=== PATIENT | female | born 1940 | race Caucasian/White ===

== ENCOUNTER 2019-10-13 05:34 | Outpatient (RCR) | payer MEDICARE, SELFPAY | END 2019-10-14 00:01 | LOC: ONCMED 05:34 | PROVIDERS: Family Provider Internal Medicine; Visit Provider Internal Medicine Hematology & Oncology | DX: Z51.11 Encounter for antineoplastic chemotherapy (principal); C15.5 Malignant neoplasm of lower third of esophagus; C78.7 Secondary malignant neoplasm of liver and intrahepatic bile duct; K44.9 Diaphragmatic hernia without obstruction or gangrene; K40.90 Unilateral inguinal hernia, without obstruction or gangrene, not specified as recurrent; I10 Essential (primary) hypertension; Z90.49 Acquired absence of other specified parts of digestive tract; Z92.3 Personal history of irradiation | CPT/HCPCS: 36592 ×3; 70260; 70553; 78306; 80053 ×4; 85007; 85025 ×6; 96367 ×2; 96372 ×4; 96413 ×2; 96417 ×2; 99214 ×3; A9561; A9579; J1100 ×2; J1442 ×4; J2469 ×2; J3490 ×2; J7050 ×6; J9267 ×2; J9355 ×2 ==

== ENCOUNTER 2019-10-28 10:33 | Day surgery (SDC) | payer MEDICARE, SELFPAY ==
[2019-10-27 12:49] VITALS: BMI 19.9
[2019-10-28 10:47] VITALS: BP 105/62; PULSE 67; RESP 18; TEMP 36.5; O2SAT 99
[2019-10-28] MEDS: sodium chloride 0.9% 1,000 ML 30 ML IV (11:28)
--- NOTE | 2019-10-28 11:32 | ANES.PREANES ---
Pre-Anesthetic Assessment Pre-Anesthetic Assessment: Height/Weight: Height 1.52 m Weight 46.266 kg Temp Pulse Resp BP Pulse Ox 97.7 F 67 18 105/62 99 10/28/19 10:47 10/28/19 10:47 10/28/19 10:47 10/28/19 10:47 10/28/19 10:47 Preop Diagnosis: Esophageal cancer Proposed Procedure: Operation Date: 10/28/19 12:10 Proposed Procedures p Portacath Placement 74364, 85076, C15.9, R13.10(Not Applicable) - Abhinav Villafana MD s EGD Dilation W/ Balloon(Not Applicable) - Abhinav Villafana MD Familial anesthetic complications: None Was Beta Zia taken within 24 hours: Yes Last intake: Intake Last Liquid Date 10/27/19 Last Liquid Time 19:00 Last Solid Date 10/27/19 Last Solid Time 19:00 Social: Social History: No alcohol and No tobacco Exam: Pre-Anes Outpt Exam: alert, oriented x 3, clear to auscultation bilaterally and regular rate & rhythm Airway: Cervical ROM: WNL MP: 1 Dentition: False Pulmonary: Pulmonary: None reported CV/HEM: CV/HEM: HTN and None reported : : None reported Hepatic: Hepatic: None reported GI: GI: GERD Comments: esphogeal cancer, takes pepcid, dysphagia Metabolic: Metabolic: None reported Musc/skel: Musc/skel: OA/DJD Neuropsych: Neuropsych: None reported Anesthetic Plan: ASA status: IV Anesthesia: MAC Risk of > 500 ml blood loss (7ml/kg in children): No Meds/Allergies Current Medications: Current Medications Generic Name Dose Route Start Last Admin Trade Name Freq PRN Reason Stop Dose Admin Sodium Chloride 1,000 mls @ 30 ml s/hr 10/28/19 11:00 10/28/19 11:28 Sodium Chloride 0.9% IV 10/29/19 10:59 30 mls/hr .Q24H LINDA Administration PFSH Anesthesia PFSH: Social History Smoking and tobacco status: never smoked Second hand smoke exposure: No Alcohol intake: never Desire information about alcohol rehabilitation?: No Desire information about substance/drug rehabilitation?: No Adopted: No Caregiver/support person: Yes Lives independently: Yes Household members: family Housing: House Marital status: / Number of children: 3 Number of grandchildren: 6 Highest education level completed: High School Graduate service: No Current occupational status: retired Current occupational exposures/hazards: No Pets and animals: No Female Reproductive History: Para: 3 Spontaneous abortions: No Data Anesthesia Cardiac Studies: No Data to Display
[2019-10-28] MEDS: clindamycin 600 MG/50 ML PREMIX 100 MG IV (11:43)
--- NOTE | 2019-10-28 12:33 | PM.HPUD ---
H&P update H&P Update: DATE OF SURGERY/PROCEDURE: 10/28/19 DATE H&P PERFORMED: 10/16/19 H&P UPDATE INFORMATION: H&P completed within last 30 days and Changes to prior documentation as noted here (Patient overall feels frail and she is comfortable with the PICC line for now, proceed only with the EGD with possible balloon dilation) PREOP DIAGNOSIS: Difficulty in swallowing PRIMARY INDICATION FOR PROCEDURE: The same PLANNED PROCEDURE: Operation Date: 10/28/19 12:10 Proposed Procedures s EGD Dilation W/ Balloon(Not Applicable) - Abhinav Villafana MD Full H&P Medications/Allergies: Current Medications: Current Medications Generic Name Dose Route Start Last Admin Trade Name Freq PRN Reason Stop Dose Admin Sodium Chloride 1,000 mls @ 30 ml s/hr 10/28/19 11:00 10/28/19 11:28 Sodium Chloride 0.9% IV 10/29/19 10:59 30 mls/hr .Q24H LINDA Administration Perinent History: Medical/Surgical History: Medical History (Updated 10/18/19 @ 09:11 by Abhinav Villafana MD) Difficulty in swallowing (Acute) Family History: Family History (Updated 10/16/19 @ 16:03 by Katelyn Helms RN) Mother Cancer colon cancer Brother Cancer colon Sister Cancer breast cancer Social History: Social History Smoking and tobacco status: never smoked Second hand smoke exposure: No Alcohol intake: never Desire information about alcohol rehabilitation?: No Desire information about substance/drug rehabilitation?: No Adopted: No Caregiver/support person: Yes Lives independently: Yes Household members: family Housing: House Marital status: / Number of children: 3 Number of grandchildren: 6 Highest education level completed: High School Graduate service: No Current occupational status: retired Current occupational exposures/hazards: No Pets and animals: No
[2019-10-28 13:24] VITALS: BP 122/69; PULSE 70; RESP 16; TEMP 36.4; O2SAT 99
[2019-10-28 14:05] VITALS: BP 138/77; PULSE 61; RESP 18; TEMP 36.3; O2SAT 99
--- NOTE | 2019-10-28 14:52 | ANE.PACU ---
 Inpatient post-anesthesia follow up: Airway intact: Yes Vital signs: Temperature 97.4 F Pulse Rate [Monito r] 61 Respiratory Rate 18 Blood Pressure [Le ft Arm] 138/77 Pulse Oximetry 99 Oxygen Delivery Me thod Room Air Oxygen Flow Rate 3 Fraction of Inspir ed Oxygen Hydration adequate: Yes Nausea and vomiting: No Mental status: Baseline
== END 2019-10-28 14:41 | disposition home or self-care (01) ==
PROVIDERS: Family Provider Internal Medicine; PCP Internal Medicine; Visit Provider Surgery
PROC: (CPT 43235; 2019-10-28 12:10)
DX: R13.10 Dysphagia, unspecified (principal); Z80.0 Family history of malignant neoplasm of digestive organs; Z87.19 Personal history of other diseases of the digestive system; Z92.3 Personal history of irradiation; M19.90 Unspecified osteoarthritis, unspecified site
CPT/HCPCS: 43235; 12345; 96365; J2704; J3490; J7030

== ENCOUNTER 2019-11-04 08:18 | Outpatient (CLI) | payer MEDICARE, SELFPAY ==
--- NOTE | 2019-11-04 08:33 | FL_ITS ---
WS: [id number] MODIFIED BARIUM SWALLOW TECHNIQUE: Modified barium swallow with speech therapy using multiple consistencies. FLUOROSCOPY TIME: 2.7 minutes. CLINICAL INFORMATION: Pharyngoesoph. dysphagia COMPARISON: None. FINDINGS: Multiple consistencies utilized. Somewhat delayed oropharyngeal phase. No evidence of aspiration pene tration. Small amount of pooling in the vallecula. No difficulties with barium tablet. Mild esophageal dysmotility with delayed emptying. Gastroesophageal reflux to the upper esophagus. Sm all hiatal hernia. No evidence of high-grade stricture or obstructing mass. FL/FL barium swallow modifd 95236 IMPRESSION: 1. No evidence of kirstin aspiration. 2. Mild esophageal dysmotility with delayed emptying. 3. Gastroesophageal reflux the upper esophagus with a small hiatal hernia. 4. No evidence of high-grade stricture.
== END 2019-11-04 08:19 | disposition home or self-care (01) ==
PROVIDERS: Family Provider Internal Medicine; PCP Internal Medicine; Visit Provider Surgery
DX: K21.9 Gastro-esophageal reflux disease without esophagitis (principal); K44.9 Diaphragmatic hernia without obstruction or gangrene; R13.10 Dysphagia, unspecified
CPT/HCPCS: 74230; 92611

== ENCOUNTER 2019-11-14 05:44 | Outpatient (RCR) | payer MEDICARE, SELFPAY ==
[2019-10-20 12:14] LABS: Lymphocytes # 0.1 10^3/uL (0.8-4.8); Lymphocytes % 7.5 %; Mean Corpuscular HGB Conc 32.4 g/dL (30.0-36.0); Mean Corpuscular Hemoglobin 31.3 pg (28.0-34.0); Mean Corpuscular Volume 96.6 fL (81-99); Monocytes % 0.7 %; Neutrophils # 1.2 10^3/uL (1.8-7.7); Neutrophils % 91.1 %; Nucleated Red Blood Cells % 0 %; Platelet Count 156 10^3/cmm (130-400); Red Blood Count 3.52 10^6/uL (4.1-5.3); Red Cell Distribution Width 13.7 % (12.1-15.1); White Blood Count 1.3 10^3/uL (4.0-10.0)
[2019-10-20 12:37] LABS: Alanine Aminotransferase 20 U/L (0-33); Albumin Level 3.9 g/dL (3.5-5.2); Alkaline Phosphatase 176 IU/L (35-105); Anion Gap 14.7 (5-19); Aspartate Amino Transferase 32 U/L (0-32); Blood Urea Nitrogen 16 mg/dL (8-23); Calcium 9.9 mg/Dl (8.8-10.2); Carbon Dioxide 25 mmol/L (22-29); Chloride 101 mmol/L (98-107); Glucose 154 mg/dL (74-106); Potassium 4.7 mmol/L (3.5-5.1); Sodium 136 mmol/L (136-145); Total Bilirubin 0.3 mg/dL (0.15-1.2); Total Protein 6.9 g/dL (6.6-8.7)
--- NOTE | 2019-10-20 15:49 | ONC FU_ITS ---
[facility] Patient Note Patient: Arelis Pro Unit #: [id number]: [id number] Dictated By: Suleiman DaviesDate of Visit: Oct 20, 2019 Onc MED Follow-Up/Prog Note Chief Complaint: Metastatic esophageal cancer with liver metastases History of Present Illness: Ms Pro is a 79-year-old female who initially presented with dysphagia in the summer of 2017. It did get progressively worse, to the point where she only tolerated a liquid diet. She did undergo barium swallow on 09/20/2018 which showed a poor motility throughout and the distal esophagus was dilated. There was a stricture at the gastroesophageal junction. She then underwent EGD on 10/01/2018 which revealed a distal esophageal mass at the 30-35 cm joao. It was biopsied and pathology confirmed infiltrating adenocarcinoma. On 10/05/2018 she underwent PET/CT imaging. He reported a 2.8 x 3 cm GE junction mass with an SUV of 19.7. There were 3 separate hepatic lesions with the largest one in the left hepatic lobe measuring 2.5 cm with SUV of 31.1. Smaller right hepatic lobe lesions have SUVs up to 10.5. There was no evidence of mediastinal or abdominal lymphadenopathy or other metastasis. She complained of dysphagia and only tolerated a liquid diet. She had fatigue and night sweats. She had significant weight loss of 42 pounds over 6 months. patient has history of laparoscopic Trell fundoplication done about 4 years ago with hiatal hernia repair in [place]. Ms Pro was offered treatment with systemic chemotherapy with modified FOLFOX. She was planned to have repeat EGD after 3 cycles to assess response and plan for PET/CT after 6 cycles.. An attempt was made for venous access device placement on 10/22/2018. Informed that she did have a right hemothorax. She does have a left arm PICC line for venous access at this time. No further attempt has been made for venous access device, such as the Port-A-Cath. She began her first cycle of chemotherapy with modified FOLFOX and Herceptin (she was HER-2/jordan positive) on 10/04/2018. After her 2nd dose of Herceptin/FOLFOX, she had dramatic improvement in her swallowing. Follow-up CT PET scan done on 12/21/2018 showed excellent response, now there was minimal activity at the distal esophagus, consistent with positive response to therapy, this area had shown an SUV of 3.4 compared to 19.7 on prior study. Multifocal hepatic metastasis now isometabolic to the surrounding baseline liver activity, representing a positive response to therapy. No new lesions have developed. And mediastinum, new activity in the right hilar lymph node has SUV of 4.6, other nodes in the subcarinal and right paratracheal territories are similarly FDG positive, these are likely reactive . She underwent follow-up EGD on 01/29/2019 which showed an abnormality in the lower third esophagus. The abnormal area looked like mucosa- appreciated at the distal third of esophagus, random and multiple biopies were obtained. The final pathology report showed benign fragment of superficial gastric type mucosa with focal specialized metaplasia, with a rare cellular atypia no evidence of malignancy. Patient has a right groin hernia for which she underwent CT scan of abdomen pelvis on 01/30/2019 which showed metallic foreign body within the distal esophagus, but EGD done on 01/29/2019 showed nothing, Metallic esophageal stent in noted. Small sliding-type hiatal hernia; 2 ill-defined foci of decreased attenuation right lobe liver at sites of prior hepatic metastases Status post cholecystectomy, hysterectomy and appendicectomy CT PET scan done on 03/01/2019 showed the distal esophagus with an SUV of 4.8, compared to 3.4 previously. Hepatic activity is unremarkable no evidence of active metastatic disease reactive mediastinal lymph node previously described are now FDG negative. EGD was done on 01/29/2019 and esophageal biopsy shows benign changes. She tolerated palliative chemotherapy with FOLFOX/Herceptin well except progressive leukopenia/neutropenia. Follow-up PET scan done after 11 dose of FOLFOX plus Herceptin on 06/07/2019 showed new intense activity at the distal esophagus otherwise no other abnormality Because of progressive dysphagia and local disease progression seen on CT PET scan, her chemotherapy was put on hold. She was referred to radiation oncology and underwent palliative radiation therapy. alone to distal esophagus starting from 07/02/2019 through 08/06/2019. She tolerated the radiation well with good palliation and improvement of dysphagia. Mrs Pro tolerated palliative radiation to distal esophagus well with significant improvement in her dysphagia. was recommended changing her treatment to maintenance therapy with weekly Herceptin and Taxol 3 weeks on 1 week off. The plan is to do follow-up CT PET scan after 3 cycles. She began her first dose on 09/08/19. Patient also developed progressive neutropenia/leukopenia and was treated with Neupogen and was given prophylactic antibiotics and her chemotherapy was put on hold since her last chemotherapy on 09/15/2019 She did have an MRI of the brain last week and was foung to have no signs of brain metastasis, but did have an area of suspected underlying dural thickening and enhancement. 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 but Negative calvarial radiographs, no calvarial lesions to correlate with the abnormal bone scan activity Bilateral anterior rib activity probably posttraumatic, metastatic disease less likely. Resolved previous compression fracture T11 vertebral body activity. Dr Fischer discussed her disease status with her and her family and it was decided to have her resume paclitaxel/Herceptin weekly. She resumed her first cycle on 10/13/2019. She did not have growth factor support. Ms. Pro is here today for follow-up. She is due for day 8 paclitaxel Herceptin. She is had trouble with her blood counts being low in the past and has required growth factor support. However she did not get growth factor with her previous treatment last week. She reports today that she is having new persistent and severe upper mid quad pain. She states it is came on all of a sudden after her last treatment she states is up in the diaphragm area right where they put the radiation de la torre . She denies any persistent diarrhea. She did have a couple days of diarrhea after the Herceptin but that has resolved. She denies any blood in the stool. She denies any nausea or vomiting. She denies any heartburn or acid reflux. She states it hurts to eat and that exacerbates the pain. So she is not eating. Heat or warm liquids seems to help but she is unable take any pain medication because she is allergic to most pain meds. She has not tried hydromorphone or morphine in the past that she is aware of. She typically develops a significant rash with the pain meds that she has allergies listed to now. She states her breathing has been good except when she is having the pain and she is little bit more short of breath than normal. She denies fever or chills. She denies any urinary changes. She has had slight neuropathy but that is much better. Her ECOG is 2. Past Medical History: Hypertension Past Surgical History: Cholecystectomy Esophagotomy Hernia repair Hysterectomy Tonsillectomy EGD in [address] Villafana in 2019 Right hemithorax after attempted Port a Cath placement in 2019 Allergies: Advil, Amoxicillin, Codeine Sulfate, darvacet, Fosamax, Gabapentin, Hydrocodone-Acetaminophen, Penicillin V Potassium, tegament, TraMADol HCl, Tylenol with Codeine #3, and Vicodin. Medications: ALPRAZolam 1 Tablet (of 0.5 mg) Oral t.i.d. PRN ClearLax Powder Oral daily PRN Famotidine 1 Tablet (of 20 mg) Oral b.i.d. First-Mouthwash BLM 1 tsp Suspension Mouth/throat four times a day PRN Fluconazole 1 Tablet (of 100 mg) Oral daily PRN Metoprolol Tartrate 0.5 Tablet (of 25 mg) Oral daily Prochlorperazine Maleate 1 Tablet (of 10 mg) Oral q 4 hours PRN Family History: Ms. Pro's mother at age 73: colon cancer. Ms. Pro's father at age 69: type II diabetes. Ms. Pro has 1 brother who is : colon cancer. She has 2 sisters: 1 alive, 1 . Ms. Pro's first sister's breast cancer. Another sister's breast cancer. Social History: Ms. Pro is and she is retired. Ms. Pro has never smoked. She has no history of drinking. Review Of Symptoms: Constitutional Denies fevers, chills, night sweats, excessive fatigue or weight loss. Marginal appetite. Allergic/Immunologic No reactions. Eyes Denies significant visual changes-she has had increased blurry vision off and on. No diplopia. No amaurosis. ENMT Denies changes in hearing, sore throat, mouth sores, difficulty or changes in swallowing ability, and/or sinus drainage. Endocrine No diabetes, thyroid disease or hormone replacement. Denies hot flashes or night sweats. Hematologic/Lymphatic Denies easy bruising or bleeding. The patient denies any tender or palpable lymph nodes. Respiratory Denies dyspnea on exertion, chest pain, cough or hemoptysis. Denies orthopnea. Cardiovascular Denies anginal chest pain, palpitations or orthopnea. Gastrointestinal Denies nausea, vomiting, diarrhea, GI bleeding, or constipation. Denies change in bowel habits and/or stool color, no heartburn or early satiety. Having persistent severe pain in mid upper quadrant of abdomen. She states it is right where the radiation de la torre were. It just started suddenly but has not let up much . It hurts to eat, so she isn't doing that. Pepcid did help some. She has significant rash to many medications-especially pain medication. She has not tried hydromorphone or morphine. Genitourinary (F) No hematuria, hesitancy, incontinence, vaginal bleeding, discharge or other problems with urination. Musculoskeletal Denies joint pain, swelling or redness. No decreased range of motion. Integumentary Denies chronic rashes, inflammation, ulcerations or skin changes. Neurologic Denies headache, blurred vision, and no areas of focal weakness or numbness. Normal gait. No sensory problems. Psychiatric Denies insomnia, depression, silver or mood swings. Vital Signs: Performed on Oct 20, 2019 13:36 Height - 61.00 in Weight - 106.2 lbs (LOW) BSA - 1.44 sq.m BMI - 20.07 Temperature - 98.0 F (LOW) Pulse - 83 /min Respiration - 18 /min BP - 120/71 mm(hg) O2 Sat - 97 % Pain - 8,2 - Ambulatory/capable of all self-care, unable to perform any work activities. Up and about more than 50% of waking hours. (ECOG) Physical Examination: Constitutional Alert, oriented, no acute distress. Skin pink, warm and dry. Head Normocephalic; atraumatic. There is a 2-3 cm diameter hard, raised, non draining lesion on the right side near her pentecostal area. Eyes Conjunctivae and sclerae are clear and without icterus. Pupils are reactive and equal. Neck No jugular venous distension. Hematologic/Lymphatic No petechiae or purpura. Abdomen Non-tender, non-distended, no masses, ascites. Good bowel sounds noted in all quads. No guarding or rebound tenderness. No pulsatile masses. Moderate tenderness noted in mid upper quad. Back/Spine Non-tender to palpation. Extremities No visible deformities, no cyanosis, clubbing or edema. Musculoskeletal No tenderness or swelling, normal range of motion without obvious weakness. Integumentary No rashes or lesions. Neurologic No sensory or motor deficits, normal cerebellar function, normal gait. Psychiatric Alert and oriented times three. Coherent speech. Verbalizes understanding of our discussions today. Laboratory:Test performed on Oct 20, 2019 12:59 Sodium 136 mmol/L Potassium 4.7 mmol/L Chloride 101 mmol/L CO2 25 mmol/L Anion Gap 14.7 BUN 16 mg/dL Creatinine 0.5 mg/dL Cr Clearance (Est) 72.39 mL/min Glucose 154 mg/dL Calcium 9.9 mg/dL Protein, Total 6.9 g/dL Albumin 3.9 g/dL Globulin 3.0 g/dL Bilirubin, Total 0.3 mg/dL ALT (SGPT) 20 Units/L AST (SGOT) 32 Units/L Alkaline Phosphatase 176 IU/L WBC 1.3 10^3/uL RBC 3.52 10^6/uL HGB 11.0 g/dL HCT 34.0 % MCV 96.6 fl MCH 31.3 pg MCHC 32.4 g/dL RDW 13.7 % Platelet Count 156 10^3/uL MPV 10.0 fl Neutrophils 1.2 10^3/uL Lymphocytes 0.1 10^3/uL Monocytes 0.0 10^3/uL Eosinophils 0.0 10^3/uL Basophils 0.0 10^3/uL Neutrophil % 91.1 % Lymphocyte % 7.5 % Monocyte % 0.7 % Eosinophil % 0.0 % Basophils % 0.0 % Impression: Infiltrating adenocarcinoma of distal esophagus per EGD done on 10/01/2018. CT PET scan done on 10/05/2018 showed abnormal activity at GE junction mass measuring roughly 2.8 x 3 cm with SUV of 19.7. 3 separate hepatic lesions are identified, indicating multifocal hepatic metastatic disease. The index lesion in the left hepatic lobe measures 2.5 cm with SUV of 31.1. Smaller right hepatic lobe lesions have SUV of 10.5 Approximately 30 pounds Weight loss due to Dysphagia due to above Hypertension Dr Fischer discussed with Mrs Pro her disease status clinically and radiologically. She has stage IV disease with liver metastases. She was symptomatic due to distal esophageal primary. Case was discussed with Dr. Hector , as per his evaluation patient has partial obstruction and liquid diet maybe tolerable. Considering her age and stage of disease, recommended systemic chemotherapy with modified dose FOLFOX and hercetin ,as she is [id number] positive and repeat EGD after 3 cycles to assess the response. Plan for CT PET scan after 6 doses. If with chemotherapy there is no improvement in her dysphagia, we may consider palliative radiation therapy or J-tube. Ms. Pro began her first cycle of modified FOLFOX along with Herceptin (she was HER-2/jordan positive) 0n 11/04/2018. She has tolerated treatment well and has had obvious clinical response. Follow-up CT PET scan done on 12/21/2018 showed excellent response with minimal activity of the distal esophagus consistent with a positive response to therapy. The area had a reported SUV of 3.4 compared to 19.7 on prior study. Multifocal hepatic metastases are now isometabolic to surrounding baseline liver activity, representing a positive response to therapy. No new lesion seen except few reactive lymph nodes in the right hilar, paratracheal and subcarinal area. Follow-up EGD done on 01/29/2019 showed abnormal looking mucosa at the distal third of esophagus, multiple biopsies were obtained. The final pathology report showed Goldstein's esophagitis, no evidence of malignancy. Follow-up PET/CT from March 01, 2019 reported distal esophagus with an SUV of 4.8 up from 3.4 and a significant change. Given the benign biopsy results from January 2019 EGD this is likely inflammatory. Hepatic activity is unremarkable with no evidence of active metastatic disease. The reactive mediastinal nodes previously described are now FDG negative . Follow-up CT PET scan done on 06/07/2019 after 12 dose of FOLFOX/Herceptin showed disease progression at distal esophagus with increased activity-SUV 10.5. At that time chemotherapy was discontinued on 06/03/2019 and due to progressive dysphagia. She was referred to radiation oncology for palliative radiation therapy to distal esophagus which she completed on 08/06/2019. Mrs Pro tolerated palliative radiation to distal esophagus well with significant improvement in her dysphagia. was recommended changing her treatment to maintenance therapy with weekly Herceptin and Taxol 3 weeks on 1 week off. The plan is to do follow-up CT PET scan after 3 cycles. Echocardiogram done on 09/29/2019 showed ejection fraction 65% and bone scan showed abnormal activity in the calvarium but plain x-ray showed no abnormality. MRI scan of the head which showed calvarium bone lesion confirmed with bone scan but plain x-ray did not show any abnormality in the skull bones, these changes could be due to chemotherapy-induced bone marrow changes. Per DR Fischer, we'll monitor. Ms. Pro resumed paclitaxel Herceptin on 10/13/2019. She is once again having chemo induced neutropenia today with an ANC of 1200. Plan: 1. Delay week 2/day 8 of planned chemotherapy with paclitaxel/Hereptin due to neutropenia. ANC is 1200 today. 2. Steroid complaince confirmed. 3. I do not see that she received Neupogen after treatment last week. 4. I have requested a follow-up PET CT as she states it was due for October after the radiation plus she is having new sudden onset mid upper quadrant pain. She states that pain is worse with eating, but warm liquids or a heating pad do seem to ease the pain some although it does not relieve it completely. Hopefully we will be able to get the PET scan on the Sunday. 5. Her daughter is requesting that we move her appointments to Sunday or for ease of their schedules at home. This was no problem. We will plan to see her next Sunday with CBC CMP- she will come here and have her labs drawn. We did discuss possibly having them drawn at home prior to use her appointment but our train attendant is unable to draw through the PICC line and they were not real comfortable with home health drawing through the PICC line. 6. In the interim I did ask her to increase her Pepcid to 40 mg twice daily as she states the Pepcid has helped with the pain some. 7. We will also try her on MSIR 15 mg 1 tablet every 4 hours as needed for pain???written prescription per Dr. Montoya. Ms. Pro and her daughter were instructed to call us prior to her appointment next Sunday if this is not easing her pain. At that point we may be able to try hydromorphone. 8. Today's labs were reviewed in detail and discussed with Mrs. Pro and her daughter and a copy was given to them. WBC 1.3, hemoglobin 11, platelets 156,000 ANC is 1200. 9. I did go and send in a prescription for Medrol Dosepak in the event that she does have allergic reaction/rash to the morphine. 10. Mrs. Pro was instructed to proceed to the emergency room if her pain worsens. I did consider doing a abdominal/pelvic CT today however she is due for the PET CT as well and I was not sure insurance would cover both. Ms. Pro states she was comfortable waiting till Sunday to have the PET done. She is agreeable that if it worsens she will present to the ER. Signed By: Suleiman Davies-, AOCNP Tamar Fischer MD <<Signature on File>>
[2019-10-29 14:47] LABS: Basophils % 1.2 %; Eosinophils # 0.1 10^3/uL (0.0-0.8); Eosinophils % 3.6 %; Hematocrit 33.9 % (37.0-47.0); Hemoglobin 10.8 g/dL (11.5-15.3); Lymphocytes # 0.3 10^3/uL (0.8-4.8); Lymphocytes % 16.1 %; Mean Corpuscular HGB Conc 31.9 g/dL (30.0-36.0); Mean Corpuscular Hemoglobin 30.9 pg (28.0-34.0); Mean Corpuscular Volume 97.1 fL (81-99); Mean Platelet Volume 10.2 fL (7.4-10.4); Monocytes # 0.4 10^3/uL (0.2-0.9); Monocytes % 21.4 %; Neutrophils % 57.7 %; Nucleated Red Blood Cells % 0 %; Platelet Count 136 10^3/cmm (130-400); Red Blood Count 3.49 10^6/uL (4.1-5.3); Red Cell Distribution Width 13.5 % (12.1-15.1); White Blood Count 1.7 10^3/uL (4.0-10.0)
[2019-10-29 15:15] LABS: Alanine Aminotransferase 14 U/L (0-33); Albumin Level 3.6 g/dL (3.5-5.2); Alkaline Phosphatase 168 IU/L (35-105); Anion Gap 12.1 (5-19); Aspartate Amino Transferase 25 U/L (0-32); Blood Urea Nitrogen 15 mg/dL (8-23); Calcium 9.6 mg/Dl (8.8-10.2); Carbon Dioxide 28 mmol/L (22-29); Chloride 105 mmol/L (98-107); Globulin 2.8 g/dL (1.3-4.6); Glucose 102 mg/dL (74-106); Potassium 4.1 mmol/L (3.5-5.1); Sodium 141 mmol/L (136-145); Total Bilirubin 0.5 mg/dL (0.15-1.2); Total Protein 6.4 g/dL (6.6-8.7)
[2019-11-05 16:02] LABS: Basophils % 0.5 %; Eosinophils # 0.2 10^3/uL (0.0-0.8); Eosinophils % 3.4 %; Hematocrit 35.8 % (37.0-47.0); Hemoglobin 11.4 g/dL (11.5-15.3); Lymphocytes # 0.5 10^3/uL (0.8-4.8); Lymphocytes % 10.8 %; Mean Corpuscular HGB Conc 31.8 g/dL (30.0-36.0); Mean Corpuscular Hemoglobin 29.8 pg (28.0-34.0); Mean Corpuscular Volume 93.7 fL (81-99); Mean Platelet Volume 10.2 fL (7.4-10.4); Monocytes # 0.4 10^3/uL (0.2-0.9); Monocytes % 9.2 %; Neutrophils # 3.3 10^3/uL (1.8-7.7); Neutrophils % 75.9 %; Nucleated Red Blood Cells % 0 %; Platelet Count 164 10^3/cmm (130-400); Red Blood Count 3.82 10^6/uL (4.1-5.3); Red Cell Distribution Width 13.6 % (12.1-15.1); White Blood Count 4.4 10^3/uL (4.0-10.0)
[2019-11-05 18:57] LABS: Alanine Aminotransferase 21 U/L (0-33); Albumin Level 3.4 g/dL (3.5-5.2); Alkaline Phosphatase 174 IU/L (35-105); Anion Gap 16.1 (5-19); Aspartate Amino Transferase 35 U/L (0-32); Blood Urea Nitrogen 13 mg/dL (8-23); Calcium 9.8 mg/Dl (8.8-10.2); Carbon Dioxide 25 mmol/L (22-29); Chloride 104 mmol/L (98-107); Globulin 2.7 g/dL (1.3-4.6); Glucose 128 mg/dL (74-106); Potassium 4.1 mmol/L (3.5-5.1); Sodium 141 mmol/L (136-145); Total Bilirubin 0.4 mg/dL (0.15-1.2); Total Protein 6.1 g/dL (6.6-8.7)
[2019-11-12 17:42] LABS: Alanine Aminotransferase 26 U/L (0-33); Albumin Level 3.6 g/dL (3.5-5.2); Alkaline Phosphatase 200 IU/L (35-105); Anion Gap 17.4 (5-19); Aspartate Amino Transferase 41 U/L (0-32); Blood Urea Nitrogen 11 mg/dL (8-23); Calcium 9.9 mg/dL (8.5-10.5); Carbon Dioxide 25 mmol/L (22-29); Chloride 104 mmol/L (98-107); Globulin 3.2 g/dL (1.3-4.6); Glucose 118 mg/dL (74-106); Potassium 4.4 mmol/L (3.5-5.1); Sodium 142 mmol/L (136-145); Total Bilirubin 0.5 mg/dL (0.15-1.2); Total Protein 6.8 g/dL (6.6-8.7)
[2019-11-12 19:33] LABS: Basophils % 0.5 %; Eosinophils # 0.1 10^3/uL (0.0-0.8); Eosinophils % 2.3 %; Hematocrit 36.4 % (37.0-47.0); Hemoglobin 11.6 g/dL (11.5-15.3); Lymphocytes # 0.5 10^3/uL (0.8-4.8); Lymphocytes % 10.9 %; Mean Corpuscular HGB Conc 31.9 g/dL (30.0-36.0); Mean Corpuscular Hemoglobin 31.1 pg (28.0-34.0); Mean Corpuscular Volume 97.6 fL (81-99); Mean Platelet Volume 10.4 fL (7.4-10.4); Monocytes # 0.4 10^3/uL (0.2-0.9); Monocytes % 9.5 %; Neutrophils # 3.4 10^3/uL (1.8-7.7); Neutrophils % 76.6 %; Nucleated Red Blood Cells % 0 %; Platelet Count 153 10^3/cmm (130-400); Red Blood Count 3.73 10^6/uL (4.1-5.3); Red Cell Distribution Width 13.4 % (12.1-15.1); White Blood Count 4.4 10^3/uL (4.0-10.0)
[2019-11-14] MEDS: acetaminophen 325 mg Tablet 650 MG PO (09:36)
[2019-11-14] MEDS: sodium chloride 0.9% 250 ML IV (09:36)
--- NOTE | 2019-11-14 12:46 | ONC FU_ITS ---
Dr. Fischer follow up note Patient: Arelis Pro Unit #: [id number]: [id number] Dicatated By: Tamar Fischer M.D.Date of Visit:Nov 14, 2019 Onc Med Follow-up/Prog Note History of Present Illness: Ms Pro is a 79-year-old female who initially presented with dysphagia in the summer of 2017. It did get progressively worse, to the point where she only tolerated a liquid diet. She did undergo barium swallow on 09/20/2018 which showed a poor motility throughout and the distal esophagus was dilated. There was a stricture at the gastroesophageal junction. She then underwent EGD on 10/01/2018 which revealed a distal esophageal mass at the 30-35 cm joao. It was biopsied and pathology confirmed infiltrating adenocarcinoma. On 10/05/2018 she underwent PET/CT imaging. He reported a 2.8 x 3 cm GE junction mass with an SUV of 19.7. There were 3 separate hepatic lesions with the largest one in the left hepatic lobe measuring 2.5 cm with SUV of 31.1. Smaller right hepatic lobe lesions have SUVs up to 10.5. There was no evidence of mediastinal or abdominal lymphadenopathy or other metastasis. She complained of dysphagia and only tolerated a liquid diet. She had fatigue and night sweats. She had significant weight loss of 42 pounds over 6 months. patient has history of laparoscopic Trell fundoplication done about 4 years ago with hiatal hernia repair in [place]. Ms Pro was offered treatment with systemic chemotherapy with modified FOLFOX. She was planned to have repeat EGD after 3 cycles to assess response and plan for PET/CT after 6 cycles.. An attempt was made for venous access device placement on 10/22/2018. Informed that she did have a right hemothorax. She does have a left arm PICC line for venous access at this time. No further attempt has been made for venous access device, such as the Port-A-Cath. She began her first cycle of chemotherapy with modified FOLFOX and Herceptin (she was HER-2/jordan positive) on 10/04/2018. After her 2nd dose of Herceptin/FOLFOX, she had dramatic improvement in her swallowing. Follow-up CT PET scan done on 12/21/2018 showed excellent response, now there was minimal activity at the distal esophagus, consistent with positive response to therapy, this area had shown an SUV of 3.4 compared to 19.7 on prior study. Multifocal hepatic metastasis now isometabolic to the surrounding baseline liver activity, representing a positive response to therapy. No new lesions have developed. And mediastinum, new activity in the right hilar lymph node has SUV of 4.6, other nodes in the subcarinal and right paratracheal territories are similarly FDG positive, these are likely reactive . She underwent follow-up EGD on 01/29/2019 which showed an abnormality in the lower third esophagus. The abnormal area looked like mucosa- appreciated at the distal third of esophagus, random and multiple biopies were obtained. The final pathology report showed benign fragment of superficial gastric type mucosa with focal specialized metaplasia, with a rare cellular atypia no evidence of malignancy. Patient has a right groin hernia for which she underwent CT scan of abdomen pelvis on 01/30/2019 which showed metallic foreign body within the distal esophagus, but EGD done on 01/29/2019 showed nothing, Metallic esophageal stent in noted. Small sliding-type hiatal hernia; 2 ill-defined foci of decreased attenuation right lobe liver at sites of prior hepatic metastases Status post cholecystectomy, hysterectomy and appendicectomy CT PET scan done on 03/01/2019 showed the distal esophagus with an SUV of 4.8, compared to 3.4 previously. Hepatic activity is unremarkable no evidence of active metastatic disease reactive mediastinal lymph node previously described are now FDG negative. EGD was done on 01/29/2019 and esophageal biopsy shows benign changes. She tolerated palliative chemotherapy with FOLFOX/Herceptin well except progressive leukopenia/neutropenia. Follow-up PET scan done after 11 dose of FOLFOX plus Herceptin on 06/07/2019 showed new intense activity at the distal esophagus otherwise no other abnormality Because of progressive dysphagia and local disease progression seen on CT PET scan, her chemotherapy was put on hold. She was referred to radiation oncology and underwent palliative radiation therapy. alone to distal esophagus starting from 07/02/2019 through 08/06/2019. She tolerated the radiation well with good palliation and improvement of dysphagia. Mrs Pro tolerated palliative radiation to distal esophagus well with significant improvement in her dysphagia. was recommended changing her treatment to maintenance therapy with weekly Herceptin and Taxol 3 weeks on 1 week off. The plan is to do follow-up CT PET scan after 3 cycles. She began her first dose on 09/08/19. Patient also developed progressive neutropenia/leukopenia and was treated with Neupogen and was given prophylactic antibiotics and her chemotherapy was put on hold since her last chemotherapy on 09/15/2019 She did have an MRI of the brain last week and was foung to have no signs of brain metastasis, but did have an area of suspected underlying dural thickening and enhancement. 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 but Negative calvarial radiographs, no calvarial lesions to correlate with the abnormal bone scan activity Bilateral anterior rib activity probably posttraumatic, metastatic disease less likely. Resolved previous compression fracture T11 vertebral body activity. discussed her disease status with her and her family and it was decided to have her resume paclitaxel/Herceptin weekly. She resumed her first cycle on 10/13/2019. She did not have growth factor support.And again developed progressive neutropenia/leukopenia due to that chemotherapy was put on hold. Because of progressive leukopenia patient received only to weekly doses of Herceptin/Taxol prior to follow-up CT PET scan on 10/25/2019 which showed distal esophageal mass is progressed now measuring 2.7 cm in diameter SUV 15.2 compared to 10.7 previously there has been interval development of multifocal hepatic metastatic disease and index lesion in the central left hepatic lobe measuring 1.6 x 2.4 cm with SUV of 27.8. His segment IVb index lesion measures 2.6 x 1.9 cm with SUV of 17.7. Multiple other lesion throughout the liver demonstrates similar uptake. Underwent EGD on 10/28/2019 which showed presence of scarring but without obvious stenosis or stricture. No other abnormality seen. Came for follow-up, complaining of mild dysphagia but when she sits straight food moves easily to her stomach. Other than that no nausea vomiting no hemoptysis or hematemesis, no diarrhea constipation. Patient recently underwent EGD and as per report there is a no obvious stenosis or stricture or recurrence of disease, her dysphagia could be due to dysmotility due to scarring of distal esophageal segment. Otherwise no abdominal pain, no jaundice, no nausea or vomiting, no diarrhea constipation no fever or chills. Medications: ALPRAZolam 1 Tablet (of 0.5 mg) Oral t.i.d. PRN, ClearLax Powder Oral daily PRN, Famotidine 1 Tablet (of 40 mg) Oral b.i.d., First-Mouthwash BLM 1 tsp Suspension Mouth/throat four times a day PRN, Fluconazole 1 Tablet (of 100 mg) Oral daily PRN, Metoprolol Tartrate 0.5 Tablet (of 25 mg) Oral daily, Prochlorperazine Maleate 1 Tablet (of 10 mg) Oral q 4 hours PRN Allergies: Advil, Amoxicillin, Codeine Sulfate, darvacet, Fosamax, Gabapentin, Hydrocodone-Acetaminophen, Penicillin V Potassium, tegament, TraMADol HCl, Tylenol with Codeine #3, and Vicodin. Review of Systems: Constitutional - Appetite is fair. Weight is stable. No fever, chills, hot flashes, or night sweats. Energy level is improved, ENMT - No sinus congestion/drainage. No mouth sores. No sore throat or difficulty swallowing, Hematologic/Lymphatic - No abnormal bruising or bleeding, Respiratory - No shortness of breath. No cough. No pleuritic pain or hemoptysis, Cardiovascular - No chest pains, Gastrointestinal - No nausea or vomiting. No heartburn or acid reflux. No diarrhea or constipation. No blood in the stool or black stools, Genitourinary (F) - No dysuria or hematuria. No urinary frequency. No urgency or incontinence, Musculoskeletal - Pt reports occasional bone pain, Neurologic - No headache or dizziness, Psychiatric - No anxiety or depression. No insomnia. Vital Signs: Performed on Nov 14, 2019 08:02 Height - 61.00 in Weight - 105.2 lbs (LOW) BSA - 1.44 sq.m BMI - 19.88 Temperature - 97.6 F (LOW) Pulse - 89 /min Respiration - 18 /min BP - 133/81 mm(hg) O2 Sat - 97 % Pain - 0 Performance Status: 1 - No physically strenuous activity, but ambulatory and able to carry out light or sedentary work (e.g. office work, light house work). (ECOG) Physical Examination: ENMT - No oral exudates, ulcers, masses, thrush or mucositis. Oropharynx clear. Tongue normal, Respiratory - Lungs are clear to auscultation without rhonchi or wheezing, Cardiovascular - Regular rate and rhythm of heart, Abdomen - Non-tender, non-distended, Good bowel sounds. No guarding or rebound tenderness. No pulsatile masses, Extremities - no edema. Lab/Imaging: Test performed on Nov 05, 2019 12:35 Alkaline Phosphatase 174 IU/L Sodium 141 mmol/L Potassium 4.1 mmol/L Chloride 104 mmol/L CO2 25 mmol/L Anion Gap 16.1 BUN 13 mg/dL Creatinine 0.5 mg/dL Cr Clearance (Est) 72.3900 mL/min Glucose 128 mg/dL Calcium 9.8 mg/Dl Protein, Total 6.1 g/dL Albumin 3.4 g/dL Globulin 2.7 g/dL Bilirubin, Total 0.4 mg/dL ALT (SGPT) 21 U/L AST (SGOT) 35 U/L WBC 4.4 10 3/uL RBC 3.82 10 6/uL HGB 11.4 g/dL HCT 35.8 % MCV 93.7 fL MCH 29.8 pg MCHC 31.8 g/dL RDW 13.6 % Platelet Count 164 10 3/cmm MPV 10.2 fL Neutrophils 3.3 10 3/uL Lymphocytes 0.5 10 3/uL Monocytes 0.4 10 3/uL Eosinophils 0.2 10 3/uL Basophils 0.0 10 3/uL Neutrophil % 75.9 % Lymphocyte % 10.8 % Monocyte % 9.2 % Eosinophil % 3.4 % Basophils % 0.5 % Test performed on Oct 29, 2019 12:25 Manual Lymphocytes 16.1 % Manual Monocytes 21.4 % Manual Eosinophils 3.6 % Manual Basophils 1.2 % Test performed on Oct 06, 2019 14:00 BUN/Creatinine Ratio 29 Absolute Value A/G Ratio 1.5 Absolute Value Test performed on Sep 22, 2019 08:57 CBC Slide Review SLIDE REVIEW PERFORM SLIDE REVIEW AGREES WITH AUTOMATED RESULTS ST Impression: 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 3 separate hepatic lesions are identified, indicating multifocal hepatic metastatic disease. The index lesion in the left hepatic lobe measures 2.5 cm with SUV of 31.1. Smaller right hepatic lobe lesions have SUV of 10.5 Approximately 30 pounds Weight loss due to Dysphagia due to above Hypertension discussed with Mrs Pro her disease status clinically and radiologically. She has stage IV disease with liver metastases. She was symptomatic due to distal esophageal primary. Case was discussed with Dr. Hector , as per his evaluation patient has partial obstruction and liquid diet maybe tolerable. Considering her age and stage of disease, recommended systemic chemotherapy with modified dose FOLFOX and hercetin ,as she is [id number] positive and repeat EGD after 3 cycles to assess the response. Plan for CT PET scan after 6 doses. If with chemotherapy there is no improvement in her dysphagia, we may consider palliative radiation therapy or J-tube. Ms. Pro began her first cycle of modified FOLFOX along with Herceptin (she was HER-2/jordan positive) 0n 11/04/2018. She has tolerated treatment well and has had obvious clinical response. Follow-up CT PET scan done on 12/21/2018 showed excellent response with minimal activity of the distal esophagus consistent with a positive response to therapy. The area had a reported SUV of 3.4 compared to 19.7 on prior study. Multifocal hepatic metastases are now isometabolic to surrounding baseline liver activity, representing a positive response to therapy. No new lesion seen except few reactive lymph nodes in the right hilar, paratracheal and subcarinal area. Follow-up EGD done on 01/29/2019 showed abnormal looking mucosa at the distal third of esophagus, multiple biopsies were obtained. The final pathology report showed Goldstein's esophagitis, no evidence of malignancy. Follow-up PET/CT from March 01, 2019 reported distal esophagus with an SUV of 4.8 up from 3.4 and a significant change. Given the benign biopsy results from January 2019 EGD this is likely inflammatory. Hepatic activity is unremarkable with no evidence of active metastatic disease. The reactive mediastinal nodes previously described are now FDG negative . Follow-up CT PET scan done on 06/07/2019 after 12 dose of FOLFOX/Herceptin showed disease progression at distal esophagus with increased activity-SUV 10.5. At that time chemotherapy was discontinued on 06/03/2019 and due to progressive dysphagia. She was referred to radiation oncology for palliative radiation therapy to distal esophagus which she completed on 08/06/2019. Mrs Pro tolerated palliative radiation to distal esophagus well with significant improvement in her dysphagia. was recommended changing her treatment to maintenance therapy with weekly Herceptin and Taxol 3 weeks on 1 week off. The plan is to do follow-up CT PET scan after 3 cycles. Echocardiogram done on 09/29/2019 showed ejection fraction 65% and bone scan showed abnormal activity in the calvarium but plain x-ray showed no abnormality. MRI scan of the head which showed calvarium bone lesion confirmed with bone scan but plain x-ray did not show any abnormality in the skull bones, these changes could be due to chemotherapy-induced bone marrow changes. Per DR Fischer, we'll monitor. Ms. Pro resumed paclitaxel Herceptin on 10/13/2019. She is once again having chemo induced neutropenia today with an ANC of 1200. Plan: Discussed with patient regarding her labs white blood count 4.4 hemoglobin 11.6 crit 36.4 platelets 153,000 ANC 3400 CMP within normal limits and her EGD report as well as CT PET scan report. Clinically, patient is doing well except mild to moderate dysphagia which could be due to dysmotility and distal esophageal segment as EGD done recently showed no evidence of stricture or stenosis but scarring and follow-up CT PET scan shows increase uptake and also extensive liver metastases but patient could not get enough palliative chemotherapy due to progressive neutropenia/leukopenia she received only 2 doses of weekly Taxol/Herceptin prior to CT PET scan so we will continue with weekly Taxol/Herceptin but now with Neupogen support to maintain schedule. Considering her age and performance status we will consider Taxol/Herceptin weekly ???2 and repeat every 21 days with Neupogen support. We'll proceed with next weekly dose of Taxol/Herceptin today and then with daily Neupogen ???2 and return to clinic in 1 week with CBC CMP and blood count looks reasonable then for next dose of chemotherapy. Signed By: Tamar Fischer M.D. <<Signature on File>>
== END 2019-11-14 23:59 | disposition home or self-care (01) ==
LOC: ONCMED 05:44
PROVIDERS: Nurse Practitioner; Family Provider Internal Medicine; PCP Internal Medicine Hematology & Oncology; Visit Provider Internal Medicine Hematology & Oncology
DX: Z51.11 Encounter for antineoplastic chemotherapy (principal); C15.5 Malignant neoplasm of lower third of esophagus; C78.7 Secondary malignant neoplasm of liver and intrahepatic bile duct; K44.9 Diaphragmatic hernia without obstruction or gangrene; I10 Essential (primary) hypertension; R10.10 Upper abdominal pain, unspecified; Z79.899 Other long term (current) drug therapy; Z93.4 Other artificial openings of gastrointestinal tract status; Z90.49 Acquired absence of other specified parts of digestive tract; Z92.3 Personal history of irradiation
CPT/HCPCS: 36592; 80053; 85025; 96367; 96413; 96417; 99214; J1100; J1200; J2469; J3490; J7050; J9267

== ENCOUNTER 2019-12-09 05:35 | Outpatient (RCR) | payer MEDICARE, SELFPAY ==
[2019-11-19 14:04] LABS: Basophils % 0.3 %; Eosinophils # 0.2 10^3/uL (0.0-0.8); Eosinophils % 1.3 %; Hematocrit 32.9 % (37.0-47.0); Hemoglobin 10.4 g/dL (11.5-15.3); Lymphocytes # 0.5 10^3/uL (0.8-4.8); Lymphocytes % 3.3 %; Mean Corpuscular HGB Conc 31.6 g/dL (30.0-36.0); Mean Corpuscular Hemoglobin 30.7 pg (28.0-34.0); Mean Corpuscular Volume 97.1 fL (81-99); Mean Platelet Volume 10.3 fL (7.4-10.4); Monocytes # 0.4 10^3/uL (0.2-0.9); Monocytes % 2.9 %; Neutrophils # 12.2 10^3/uL (1.8-7.7); Neutrophils % 79.2 %; Nucleated Red Blood Cells % 0 %; Platelet Count 121 10^3/cmm (130-400); Red Blood Count 3.39 10^6/uL (4.1-5.3); Red Cell Distribution Width 13.5 % (12.1-15.1); White Blood Count 15.4 10^3/uL (4.0-10.0)
[2019-11-19 14:35] LABS: Alanine Aminotransferase 22 U/L (0-33); Albumin Level 3.3 g/dL (3.5-5.2); Alkaline Phosphatase 205 IU/L (35-105); Anion Gap 13.8 (5-19); Aspartate Amino Transferase 29 U/L (0-32); Blood Urea Nitrogen 13 mg/dL (8-23); Calcium 9.4 mg/dL (8.5-10.5); Carbon Dioxide 26 mmol/L (22-29); Chloride 104 mmol/L (98-107); Glucose 119 mg/dL (65-115); Potassium 3.8 mmol/L (3.5-5.1); Sodium 140 mmol/L (136-145); Total Bilirubin 0.4 mg/dL (0.15-1.2); Total Protein 6.3 g/dL (6.6-8.7)
[2019-11-19 15:14] LABS: Slide Review Slide Review Perform
[2019-11-20] MEDS: acetaminophen 325 mg Tablet 650 MG PO (13:22)
[2019-11-20] MEDS: sodium chloride 0.9% 250 ML IV (13:23)
--- NOTE | 2019-11-23 19:43 | ONC FU_ITS ---
[facility] Patient Note Patient: Arelis Pro Unit #: [id number]: 1940 Dictated By: Suleiman DaviesDate of Visit: Nov 20, 2019 Onc MED Follow-Up/Prog Note Chief Complaint: Metastatic esophageal cancer with liver metastases History of Present Illness: Ms Pro is a 79-year-old female who initially presented with dysphagia in the summer of 2017. It did get progressively worse, to the point where she only tolerated a liquid diet. She did undergo barium swallow on 09/20/2018 which showed a poor motility throughout and the distal esophagus was dilated. There was a stricture at the gastroesophageal junction. She then underwent EGD on 10/01/2018 which revealed a distal esophageal mass at the 30-35 cm joao. It was biopsied and pathology confirmed infiltrating adenocarcinoma. On 10/05/2018 she underwent PET/CT imaging. He reported a 2.8 x 3 cm GE junction mass with an SUV of 19.7. There were 3 separate hepatic lesions with the largest one in the left hepatic lobe measuring 2.5 cm with SUV of 31.1. Smaller right hepatic lobe lesions have SUVs up to 10.5. There was no evidence of mediastinal or abdominal lymphadenopathy or other metastasis. She complained of dysphagia and only tolerated a liquid diet. She had fatigue and night sweats. She had significant weight loss of 42 pounds over 6 months. patient has history of laparoscopic Trell fundoplication done about 4 years ago with hiatal hernia repair in [place]. Ms Pro was offered treatment with systemic chemotherapy with modified FOLFOX. She was planned to have repeat EGD after 3 cycles to assess response and plan for PET/CT after 6 cycles.. An attempt was made for venous access device placement on 10/22/2018. Informed that she did have a right hemothorax. She does have a left arm PICC line for venous access at this time. No further attempt has been made for venous access device, such as the Port-A-Cath. She began her first cycle of chemotherapy with modified FOLFOX and Herceptin (she was HER-2/jordan positive) on 10/04/2018. After her 2nd dose of Herceptin/FOLFOX, she had dramatic improvement in her swallowing. Follow-up CT PET scan done on 12/21/2018 showed excellent response, now there was minimal activity at the distal esophagus, consistent with positive response to therapy, this area had shown an SUV of 3.4 compared to 19.7 on prior study. Multifocal hepatic metastasis now isometabolic to the surrounding baseline liver activity, representing a positive response to therapy. No new lesions have developed. And mediastinum, new activity in the right hilar lymph node has SUV of 4.6, other nodes in the subcarinal and right paratracheal territories are similarly FDG positive, these are likely reactive . She underwent follow-up EGD on 01/29/2019 which showed an abnormality in the lower third esophagus. The abnormal area looked like mucosa- appreciated at the distal third of esophagus, random and multiple biopies were obtained. The final pathology report showed benign fragment of superficial gastric type mucosa with focal specialized metaplasia, with a rare cellular atypia no evidence of malignancy. Patient has a right groin hernia for which she underwent CT scan of abdomen pelvis on 01/30/2019 which showed metallic foreign body within the distal esophagus, but EGD done on 01/29/2019 showed nothing, Metallic esophageal stent in noted. Small sliding-type hiatal hernia; 2 ill-defined foci of decreased attenuation right lobe liver at sites of prior hepatic metastases Status post cholecystectomy, hysterectomy and appendicectomy CT PET scan done on 03/01/2019 showed the distal esophagus with an SUV of 4.8, compared to 3.4 previously. Hepatic activity is unremarkable no evidence of active metastatic disease reactive mediastinal lymph node previously described are now FDG negative. EGD was done on 01/29/2019 and esophageal biopsy shows benign changes. She tolerated palliative chemotherapy with FOLFOX/Herceptin well except progressive leukopenia/neutropenia. Follow-up PET scan done after 11 dose of FOLFOX plus Herceptin on 06/07/2019 showed new intense activity at the distal esophagus otherwise no other abnormality Because of progressive dysphagia and local disease progression seen on CT PET scan, her chemotherapy was put on hold. She was referred to radiation oncology and underwent palliative radiation therapy. alone to distal esophagus starting from 07/02/2019 through 08/06/2019. She tolerated the radiation well with good palliation and improvement of dysphagia. Mrs Pro tolerated palliative radiation to distal esophagus well with significant improvement in her dysphagia. was recommended changing her treatment to maintenance therapy with weekly Herceptin and Taxol 3 weeks on 1 week off. The plan was to do follow-up CT PET scan after 3 cycles. She began her first dose on 09/08/19. Patient also developed progressive neutropenia/leukopenia and was treated with Neupogen and was given prophylactic antibiotics and her chemotherapy was put on 09/15/2019. She did have an MRI of the brain in early September 2019 and was foung to have no signs of brain metastasis, but did have an area of suspected underlying dural thickening and enhancement. 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 She had followup calvarial xrays that were Negative, no calvarial lesions to correlate with the abnormal bone scan activity. Bilateral anterior rib activity probably posttraumatic, metastatic disease less likely. Resolved previous compression fracture T11 vertebral body activity. Ms. Pro resumed paclitaxel Herceptin on 10/13/2019. She began again having chemo induced neutropenia with an ANC of 1200 on day 8 cycle 2. She was having some performance status issues and she was sent for followup imaging. Mrs. Pro had follow-up PET CT imaging on October 25, 2019. The result indicated progression of distal esophageal malignant mass (the distal esophageal mass now measures 2.7 cm in diameter with an SUV of 15.2 which is up from her last PET CT of 10.7).; new multifocal hepatic metastatic disease (there is a index lesion in the central left hepatic lobe measuring 1.6 x 2.4 cm with an SUV of 27.8. A segment IVb index lesion measuring 2.6 x 1.9 cm with an SUV of 17.7 and other multiple lesions throughout the liver demonstrating similar uptake).; and a new uptake at the anterior left second rib from a small fracture. Mrs. Pro also underwent endoscopy with Dr. Villafana on October 28, 2019. There was presence of scarring but without obvious stenosis or stricture with history of esophageal cancer likely status post radiation. The duodenum and stomach were examined with no abnormalities seen. Given that Mrs. Pro had so much difficulty tolerating 2 cycles of the paclitaxel and Herceptin due to neutropenia, Dr. Fischer has now recommended that she continuue to pursue chemotherapy with added Neupogen support. She resumed her chemotherapy on November 14, 2019. Her ANC at that time was 3400. She received 2 doses of Neupogen and today her ANC is 12,200. Mrs. Pro is here today for follow-up. She states overall she is feeling really well. She denies any concerns with the addition at the Neupogen. She denies any bone pain. She denies any fever or chills. She states she has been getting around really well. She states that her has Alzheimer's and she is active caring for him. She states her family typically cooks all her meals and helps her clean but she is his primary caregiver. She states she has significant will to live as she wants to be around to take care of him and wants to be around to see her family-especially grand and great grandkids grow up. She denies any new pain. She states her abdominal pain is actually some better. She has had no diarrhea or constipation. She denies any neuropathy or hearing changes from the paclitaxel. She states she is eating good. Her daughter also agrees that she is doing well. Her ECOG is 1. Past Medical History: Hypertension Past Surgical History: Cholecystectomy Esophagotomy Hernia repair Hysterectomy Tonsillectomy EGD in [address] Villafana in 2019 Right hemithorax after attempted Port a Cath placement in 2019 Allergies: Advil, Amoxicillin, Codeine Sulfate, darvacet, Fosamax, Gabapentin, Hydrocodone-Acetaminophen, Penicillin V Potassium, tegament, TraMADol HCl, Tylenol with Codeine #3, and Vicodin. Medications: ALPRAZolam 1 Tablet (of 0.5 mg) Oral t.i.d. PRN ClearLax Powder Oral daily PRN Famotidine 1 Tablet (of 40 mg) Oral b.i.d. First-Mouthwash BLM 1 tsp Suspension Mouth/throat four times a day PRN Fluconazole 1 Tablet (of 100 mg) Oral daily PRN Metoprolol Tartrate 0.5 Tablet (of 25 mg) Oral daily Prochlorperazine Maleate 1 Tablet (of 10 mg) Oral q 4 hours PRN Family History: Ms. Pro's mother at age 73: colon cancer. Ms. Pro's father at age 69: type II diabetes. Ms. Pro has 1 brother who is : colon cancer. She has 2 sisters: 1 alive, 1 . Ms. Pro's first sister's breast cancer. Another sister's breast cancer. Social History: Ms. Pro is and she is retired. Ms. Pro has never smoked. She has no history of drinking. Review Of Symptoms: Constitutional Denies fevers, chills, night sweats, excessive fatigue or weight loss. Marginal appetite. Allergic/Immunologic No reactions. Eyes Denies significant visual changes-she has had increased blurry vision off and on. No diplopia. No amaurosis. ENMT Denies changes in hearing, sore throat, mouth sores, difficulty or changes in swallowing ability, and/or sinus drainage. Endocrine No diabetes, thyroid disease or hormone replacement. Denies hot flashes or night sweats. Hematologic/Lymphatic Denies easy bruising or bleeding. The patient denies any tender or palpable lymph nodes. Respiratory Denies dyspnea on exertion, chest pain, cough or hemoptysis. Denies orthopnea. Cardiovascular Denies anginal chest pain, palpitations or orthopnea. Gastrointestinal Denies nausea, vomiting, diarrhea, GI bleeding, or constipation. Denies change in bowel habits and/or stool color, no heartburn or early satiety. Genitourinary (F) No hematuria, hesitancy, incontinence, vaginal bleeding, discharge or other problems with urination. Musculoskeletal Denies joint pain, swelling or redness. No decreased range of motion. Integumentary Denies chronic rashes, inflammation, ulcerations or skin changes. Neurologic Denies headache, blurred vision, and no areas of focal weakness or numbness. Normal gait. No sensory problems. Psychiatric Denies insomnia, depression, silver or mood swings. Vital Signs: Performed on Nov 20, 2019 12:37 Height - 61.00 in Weight - 105 lbs (LOW) BSA - 1.44 sq.m BMI - 19.84 Temperature - 97.8 F (LOW) Pulse - 87 /min Respiration - 18 /min BP - 143/77 mm(hg) (HIGH) O2 Sat - 95 % (LOW) Pain - 0,1 - No physically strenuous activity, but ambulatory and able to carry out light or sedentary work (e.g. office work, light house work). (ECOG) Physical Examination: Constitutional Alert, oriented, no acute distress. Skin pink, warm and dry. Head Normocephalic; atraumatic. Eyes Conjunctivae and sclerae are clear and without icterus. Pupils are reactive and equal. ENMT No oral exudates, ulcers, masses, thrush or mucositis. Oropharynx clear. Tongue normal. Neck No jugular venous distension. Hematologic/Lymphatic No petechiae or purpura. Respiratory Lungs are clear to auscultation without rhonchi or wheezing. Cardiovascular Regular rate and rhythm of heart without murmurs,clicks, gallops or rubs. Chest Chest is symmetric without chest wall deformities. Denies any new concerns. Denies rib pain. Abdomen Non-tender, non-distended, no masses, ascites. Good bowel sounds noted in all quads. No guarding or rebound tenderness. No pulsatile masses. Back/Spine Non-tender to palpation. Extremities No visible deformities, no cyanosis, clubbing or edema. Musculoskeletal No tenderness or swelling, normal range of motion without obvious weakness. Integumentary No rashes or lesions. Neurologic No sensory or motor deficits, normal cerebellar function, normal gait. Psychiatric Alert and oriented times three. Coherent speech. Verbalizes understanding of our discussions today. Laboratory:Test performed on Nov 19, 2019 13:57 WBC 15.4 10 3/uL RBC 3.39 10 6/uL HGB 10.4 g/dL HCT 32.9 % MCV 97.1 fL MCH 30.7 pg MCHC 31.6 g/dL RDW 13.5 % Platelet Count 121 10 3/cmm MPV 10.3 fL Neutrophils 12.2 10 3/uL Lymphocytes 0.5 10 3/uL Monocytes 0.4 10 3/uL Eosinophils 0.2 10 3/uL Basophils 0.0 10 3/uL Neutrophil % 79.2 % Lymphocyte % 3.3 % Monocyte % 2.9 % Eosinophil % 1.3 % Basophils % 0.3 % CBC Slide Review Slide Review Perform Test performed on Nov 19, 2019 13:50 Sodium 140 mmol/L Potassium 3.8 mmol/L Chloride 104 mmol/L CO2 26 mmol/L Anion Gap 13.8 BUN 13 mg/dL Creatinine 0.5 mg/dL Cr Clearance (Est) 72.3900 mL/min Glucose 119 mg/dL Calcium 9.4 mg/dL Protein, Total 6.3 g/dL Albumin 3.3 g/dL Globulin 3.0 g/dL Bilirubin, Total 0.4 mg/dL ALT (SGPT) 22 U/L AST (SGOT) 29 U/L Alkaline Phosphatase 205 IU/L Impression: 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 3 separate hepatic lesions are identified, indicating multifocal hepatic metastatic disease. The index lesion in the left hepatic lobe measures 2.5 cm with SUV of 31.1. Smaller right hepatic lobe lesions have SUV of 10.5 Approximately 30 pounds Weight loss due to Dysphagia due to above Hypertension Dr Fischer discussed with Mrs Pro her disease status clinically and radiologically. She has stage IV disease with liver metastases. She was symptomatic due to distal esophageal primary. Case was discussed with Dr. Hector , as per his evaluation patient has partial obstruction and liquid diet maybe tolerable. Considering her age and stage of disease, recommended systemic chemotherapy with modified dose FOLFOX and hercetin ,as she is [id number] positive and repeat EGD after 3 cycles to assess the response. Plan for CT PET scan after 6 doses. Ms. Pro began her first cycle of modified FOLFOX along with Herceptin (she was HER-2/jordan positive) 0n 11/04/2018. She has tolerated treatment well and has had obvious clinical response. Follow-up CT PET scan done on 12/21/2018 showed excellent response with minimal activity of the distal esophagus consistent with a positive response to therapy. The area had a reported SUV of 3.4 compared to 19.7 on prior study. Multifocal hepatic metastases are now isometabolic to surrounding baseline liver activity, representing a positive response to therapy. No new lesion seen except few reactive lymph nodes in the right hilar, paratracheal and subcarinal area. Follow-up EGD done on 01/29/2019 showed abnormal looking mucosa at the distal third of esophagus, multiple biopsies were obtained. The final pathology report showed Goldstein's esophagitis, no evidence of malignancy. Follow-up PET/CT from March 01, 2019 reported distal esophagus with an SUV of 4.8 up from 3.4 and a significant change. Given the benign biopsy results from January 2019 EGD this is likely inflammatory. Hepatic activity is unremarkable with no evidence of active metastatic disease. The reactive mediastinal nodes previously described are now FDG negative . Follow-up CT PET scan done on 06/07/2019 after 12 dose of FOLFOX/Herceptin showed disease progression at distal esophagus with increased activity-SUV 10.5. At that time chemotherapy was discontinued on 06/03/2019 and due to progressive dysphagia. She was referred to radiation oncology for palliative radiation therapy to distal esophagus which she completed on 08/06/2019. Mrs Pro tolerated palliative radiation to distal esophagus well with significant improvement in her dysphagia. was recommended changing her treatment to maintenance therapy with weekly Herceptin and Taxol 3 weeks on 1 week off. The plan is to do follow-up CT PET scan after 3 cycles. Echocardiogram done on 09/29/2019 showed ejection fraction 65% and bone scan showed abnormal activity in the calvarium but plain x-ray showed no abnormality. MRI scan of the head which showed calvarium bone lesion confirmed with bone scan but plain x-ray did not show any abnormality in the skull bones, these changes could be due to chemotherapy-induced bone marrow changes. Per DR Fischer, we'll monitor. Ms. Pro resumed paclitaxel Herceptin on 10/13/2019. She began again having chemo induced neutropenia with an ANC of 1200 on day 8 cycle 2. She was having some performance status issues and she was sent for followup imaging. Mrs. Pro had follow-up PET CT imaging on October 25, 2019. The result indicated progression of distal esophageal malignant mass (the distal esophageal mass now measures 2.7 cm in diameter with an SUV of 15.2 which is up from her last PET CT of 10.7).; new multifocal hepatic metastatic disease (there is a index lesion in the central left hepatic lobe measuring 1.6 x 2.4 cm with an SUV of 27.8. A segment IVb index lesion measuring 2.6 x 1.9 cm with an SUV of 17.7 and other multiple lesions throughout the liver demonstrating similar uptake).; and a new uptake at the anterior left second rib from a small fracture. Ms. Pro also underwent endoscopy with Dr. Villafana on 2019. There was presence of scarring but without obvious stenosis or stricture with history of esophageal cancer likely status post radiation. The duodenum and stomach were examined with no abnormalities seen. Given that Ms. Pro had so much difficulty tolerating 2 cycles of the paclitaxel and Herceptin due to neutropenia, Dr. Fischer has now recommended that she continuue to pursue chemotherapy with Neupogen support. She resumed her chemotherapy on November 14, 2019. Her ANC at that time was 3400. She received 2 doses of Neupogen and today her ANC is 12,200. Plan: 1. Proceed with cycle 3-day 8 paclitaxel and Herceptin. Steroid compliance confirmed 2. We will not give her Neupogen today as her ANC is 12,200. 3. It is elected to now put her on a 21-day cycle with plan to give her chemo on days 1 and 8 with day 15 off. 4. We will plan to check a CBC on her next week for interim counts to see if she possibly could need Neupogen at that time. She will have in-home labs. 5. Today's labs were reviewed with Mrs. Pro and her daughter and a copy was given to her. WBC 15.4, hemoglobin 10.4, platelets 121,000 ANC is 12,200. Potassium 3.8 creatinine 0.5 LFTs are normal alk phos is 205???presumably due to Neupogen. 6. We will plan to see Mrs. Pro back in 2 weeks with repeat CBC, CMP via in-home labs the day before her scheduled treatment so she will know whether or not to take her steroids. 7. She was instructed to contact us in interim should questions or problems arise. Signed By: Suleiman Davies-, AOCNP Sathish Montoya MD <<Signature on File>>
[2019-11-26 12:40] LABS: Basophils % 0.6 %; Eosinophils # 0.1 10^3/uL (0.0-0.8); Eosinophils % 3.5 %; Hematocrit 33.8 % (37.0-47.0); Hemoglobin 10.8 g/dL (11.5-15.3); Lymphocytes # 0.2 10^3/uL (0.8-4.8); Lymphocytes % 13.4 %; Mean Corpuscular Volume 97.1 fL (81-99); Mean Platelet Volume 10.7 fL (7.4-10.4); Monocytes # 0.2 10^3/uL (0.2-0.9); Monocytes % 9.9 %; Neutrophils # 1.2 10^3/uL (1.8-7.7); Neutrophils % 71.4 %; Nucleated Red Blood Cells % 0 %; Platelet Count 146 10^3/cmm (130-400); Red Blood Count 3.48 10^6/uL (4.1-5.3); Red Cell Distribution Width 13.2 % (12.1-15.1); White Blood Count 1.7 10^3/uL (4.0-10.0)
[2019-12-02 11:22] LABS: Basophils % 1.2 %; Eosinophils # 0.1 10^3/uL (0.0-0.8); Eosinophils % 2.7 %; Hematocrit 34.3 % (37.0-47.0); Hemoglobin 10.7 g/dL (11.5-15.3); Lymphocytes # 0.5 10^3/uL (0.8-4.8); Lymphocytes % 15.3 %; Mean Corpuscular HGB Conc 31.2 g/dL (30.0-36.0); Mean Corpuscular Hemoglobin 30.9 pg (28.0-34.0); Mean Corpuscular Volume 99.1 fL (81-99); Mean Platelet Volume 10.1 fL (7.4-10.4); Monocytes # 0.6 10^3/uL (0.2-0.9); Monocytes % 19.2 %; Neutrophils # 1.2 10^3/uL (1.8-7.7); Neutrophils % 36.7 %; Nucleated Red Blood Cells % 0 %; Platelet Count 166 10^3/cmm (130-400); Red Blood Count 3.46 10^6/uL (4.1-5.3); Red Cell Distribution Width 13.7 % (12.1-15.1); White Blood Count 3.3 10^3/uL (4.0-10.0)
[2019-12-02 11:38] LABS: Alanine Aminotransferase 22 U/L (0-33); Albumin Level 3.2 g/dL (3.5-5.2); Alkaline Phosphatase 215 IU/L (35-105); Anion Gap 14.1 (5-19); Aspartate Amino Transferase 35 U/L (0-32); Blood Urea Nitrogen 9 mg/dL (8-23); Calcium 9.3 mg/dL (8.5-10.5); Carbon Dioxide 27 mmol/L (22-29); Chloride 107 mmol/L (98-107); Globulin 2.9 g/dL (1.3-4.6); Glucose 111 mg/dL (65-115); Potassium 4.1 mmol/L (3.5-5.1); Sodium 144 mmol/L (136-145); Total Bilirubin 0.2 mg/dL (0.15-1.2); Total Protein 6.1 g/dL (6.6-8.7)
[2019-12-02 11:49] LABS: Slide Review Slide Review Perform
[2019-12-08 08:43] LABS: Basophils % 0.7 %; Eosinophils # 0.1 10^3/uL (0.0-0.8); Eosinophils % 2.9 %; Hematocrit 32.4 % (37.0-47.0); Hemoglobin 10.1 g/dL (11.5-15.3); Lymphocytes # 0.5 10^3/uL (0.8-4.8); Mean Corpuscular HGB Conc 31.2 g/dL (30.0-36.0); Mean Corpuscular Hemoglobin 29.7 pg (28.0-34.0); Mean Corpuscular Volume 95.3 fL (81-99); Mean Platelet Volume 10.4 fL (7.4-10.4); Monocytes # 0.4 10^3/uL (0.2-0.9); Monocytes % 13.7 %; Neutrophils % 66.4 %; Nucleated Red Blood Cells % 0 %; Platelet Count 113 10^3/cmm (130-400); Red Cell Distribution Width 13.5 % (12.1-15.1); White Blood Count 3.1 10^3/uL (4.0-10.0)
[2019-12-08 09:07] LABS: Alanine Aminotransferase 19 U/L (0-33); Alkaline Phosphatase 196 IU/L (35-105); Anion Gap 12.2 (5-19); Aspartate Amino Transferase 33 U/L (0-32); Blood Urea Nitrogen 12 mg/dL (8-23); Calcium 9.4 mg/dL (8.5-10.5); Carbon Dioxide 28 mmol/L (22-29); Chloride 105 mmol/L (98-107); Glucose 99 mg/dL (65-115); Potassium 4.2 mmol/L (3.5-5.1); Sodium 141 mmol/L (136-145); Total Bilirubin 0.3 mg/dL (0.15-1.2)
[2019-12-09] MEDS: sodium chloride 0.9% 250 ML 25 ML IV (13:51)
[2019-12-09] MEDS: acetaminophen 325 mg Tablet 650 MG PO (13:53)
--- NOTE | 2019-12-12 10:45 | ONC FU_ITS ---
[facility] Patient Note Patient: Arelis Pro Unit #: [id number]: 1940 Dictated By: Suleiman DaviesDate of Visit: Dec 09, 2019 Onc MED Follow-Up/Prog Note Chief Complaint: Metastatic esophageal cancer with liver metastases History of Present Illness: Ms Pro is a 79-year-old female who initially presented with dysphagia in the summer of 2017. It did get progressively worse, to the point where she only tolerated a liquid diet. She did undergo barium swallow on 09/20/2018 which showed a poor motility throughout and the distal esophagus was dilated. There was a stricture at the gastroesophageal junction. She then underwent EGD on 10/01/2018 which revealed a distal esophageal mass at the 30-35 cm joao. It was biopsied and pathology confirmed infiltrating adenocarcinoma. On 10/05/2018 she underwent PET/CT imaging. He reported a 2.8 x 3 cm GE junction mass with an SUV of 19.7. There were 3 separate hepatic lesions with the largest one in the left hepatic lobe measuring 2.5 cm with SUV of 31.1. Smaller right hepatic lobe lesions have SUVs up to 10.5. There was no evidence of mediastinal or abdominal lymphadenopathy or other metastasis. She complained of dysphagia and only tolerated a liquid diet. She had fatigue and night sweats. She had significant weight loss of 42 pounds over 6 months. patient has history of laparoscopic Trell fundoplication done about 4 years ago with hiatal hernia repair in [place]. Ms Pro was offered treatment with systemic chemotherapy with modified FOLFOX. She was planned to have repeat EGD after 3 cycles to assess response and plan for PET/CT after 6 cycles.. An attempt was made for venous access device placement on 10/22/2018. Informed that she did have a right hemothorax. She does have a left arm PICC line for venous access at this time. No further attempt has been made for venous access device, such as the Port-A-Cath. She began her first cycle of chemotherapy with modified FOLFOX and Herceptin (she was HER-2/jordan positive) on 10/04/2018. After her 2nd dose of Herceptin/FOLFOX, she had dramatic improvement in her swallowing. Follow-up CT PET scan done on 12/21/2018 showed excellent response, now there was minimal activity at the distal esophagus, consistent with positive response to therapy, this area had shown an SUV of 3.4 compared to 19.7 on prior study. Multifocal hepatic metastasis now isometabolic to the surrounding baseline liver activity, representing a positive response to therapy. No new lesions have developed. And mediastinum, new activity in the right hilar lymph node has SUV of 4.6, other nodes in the subcarinal and right paratracheal territories are similarly FDG positive, these are likely reactive . She underwent follow-up EGD on 01/29/2019 which showed an abnormality in the lower third esophagus. The abnormal area looked like mucosa- appreciated at the distal third of esophagus, random and multiple biopies were obtained. The final pathology report showed benign fragment of superficial gastric type mucosa with focal specialized metaplasia, with a rare cellular atypia no evidence of malignancy. Patient has a right groin hernia for which she underwent CT scan of abdomen pelvis on 01/30/2019 which showed metallic foreign body within the distal esophagus, but EGD done on 01/29/2019 showed nothing, Metallic esophageal stent in noted. Small sliding-type hiatal hernia; 2 ill-defined foci of decreased attenuation right lobe liver at sites of prior hepatic metastases Status post cholecystectomy, hysterectomy and appendicectomy CT PET scan done on 03/01/2019 showed the distal esophagus with an SUV of 4.8, compared to 3.4 previously. Hepatic activity is unremarkable no evidence of active metastatic disease reactive mediastinal lymph node previously described are now FDG negative. EGD was done on 01/29/2019 and esophageal biopsy shows benign changes. She tolerated palliative chemotherapy with FOLFOX/Herceptin well except progressive leukopenia/neutropenia. Follow-up PET scan done after 11 dose of FOLFOX plus Herceptin on 06/07/2019 showed new intense activity at the distal esophagus otherwise no other abnormality Because of progressive dysphagia and local disease progression seen on CT PET scan, her chemotherapy was put on hold. She was referred to radiation oncology and underwent palliative radiation therapy. alone to distal esophagus starting from 07/02/2019 through 08/06/2019. She tolerated the radiation well with good palliation and improvement of dysphagia. Mrs Pro tolerated palliative radiation to distal esophagus well with significant improvement in her dysphagia. was recommended changing her treatment to maintenance therapy with weekly Herceptin and Taxol 3 weeks on 1 week off. The plan was to do follow-up CT PET scan after 3 cycles. She began her first dose on 09/08/19. Patient also developed progressive neutropenia/leukopenia and was treated with Neupogen and was given prophylactic antibiotics and her chemotherapy was put on 09/15/2019. She did have an MRI of the brain in early September 2019 and was foung to have no signs of brain metastasis, but did have an area of suspected underlying dural thickening and enhancement. 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 She had followup calvarial xrays that were Negative, no calvarial lesions to correlate with the abnormal bone scan activity. Bilateral anterior rib activity probably posttraumatic, metastatic disease less likely. Resolved previous compression fracture T11 vertebral body activity. Ms. Pro resumed paclitaxel Herceptin on 10/13/2019. She began again having chemo induced neutropenia with an ANC of 1200 on day 8 cycle 2. She was having some performance status issues and she was sent for followup imaging. Mrs. Pro had follow-up PET CT imaging on October 25, 2019. The result indicated progression of distal esophageal malignant mass (the distal esophageal mass now measures 2.7 cm in diameter with an SUV of 15.2 which is up from her last PET CT of 10.7).; new multifocal hepatic metastatic disease (there is a index lesion in the central left hepatic lobe measuring 1.6 x 2.4 cm with an SUV of 27.8. A segment IVb index lesion measuring 2.6 x 1.9 cm with an SUV of 17.7 and other multiple lesions throughout the liver demonstrating similar uptake).; and a new uptake at the anterior left second rib from a small fracture. Mrs. Pro also underwent endoscopy with Dr. Villafana on October 28, 2019. There was presence of scarring but without obvious stenosis or stricture with history of esophageal cancer likely status post radiation. The duodenum and stomach were examined with no abnormalities seen. Given that Mrs. Pro had so much difficulty tolerating 2 cycles of the paclitaxel and Herceptin due to neutropenia, Dr. Fischer has now recommended that she continuue to pursue chemotherapy with added Neupogen support. She resumed her chemotherapy on November 14, 2019. Her ANC at that time was 3400. She received 2 doses of Neupogen and today her ANC is 12,200. Mrs. Pro is here today for follow-up. She states overall she is feeling really well. She denies any concerns with the addition of the Neupogen. She denies any bone pain. She denies any fever or chills. She states she has been getting around really well. She remains very active taking care of her . She states overall she is still swallowing much better. She does have a little trouble with meat???especially red meats at times. She states that she will does chew slowly she can pretty much the wherever she wants. She denies any new concerns. She has had no nausea. She states overall she feels she is eating good. Her energy is fair. She is able to take care of her without any assistance although her kids do help her with meals and cleaning and such. She states that she is taking black elderberry for immune system but does not take it the day before the day of chemotherapy. She has no other questions or concerns today. She states her bowel and bladder have been normal for her. Is not been anything that she has been concerned about. She denies diarrhea. She denies any numbness or tingling in her hands or feet. Her ECOG is 1. Past Medical History: Hypertension Past Surgical History: Cholecystectomy Esophagotomy Hernia repair Hysterectomy Tonsillectomy EGD in [address] Villafana in 2019 Right hemithorax after attempted Port a Cath placement in 2019 Allergies: Advil, Amoxicillin, Codeine Sulfate, darvacet, Fosamax, Gabapentin, Hydrocodone-Acetaminophen, Penicillin V Potassium, tegament, TraMADol HCl, Tylenol with Codeine #3, and Vicodin. Medications: ALPRAZolam 1 Tablet (of 0.5 mg) Oral t.i.d. PRN ClearLax Powder Oral daily PRN Famotidine 1 Tablet (of 40 mg) Oral b.i.d. First-Mouthwash BLM 1 tsp Suspension Mouth/throat four times a day PRN Fluconazole 1 Tablet (of 100 mg) Oral daily PRN Ibuprofen 2 Tablet (of 200 mg) Oral daily Metoprolol Tartrate 0.5 Tablet (of 25 mg) Oral daily Prochlorperazine Maleate 1 Tablet (of 10 mg) Oral q 4 hours PRN Family History: Ms. Pro's mother at age 73: colon cancer. Ms. Pro's father at age 69: type II diabetes. Ms. Pro has 1 brother who is : colon cancer. She has 2 sisters: 1 alive, 1 . Ms. Pro's first sister's breast cancer. Another sister's breast cancer. Social History: Ms. Pro is and she is retired. Ms. Pro has never smoked. She has no history of drinking. Review Of Symptoms: Constitutional Denies fevers, chills, night sweats, excessive fatigue or weight loss. Marginal appetite. Allergic/Immunologic No reactions. Eyes Denies significant visual changes-she has had increased blurry vision off and on. No diplopia. No amaurosis. ENMT Denies changes in hearing, sore throat, mouth sores, difficulty or changes in swallowing ability, and/or sinus drainage. Endocrine No diabetes, thyroid disease or hormone replacement. Denies hot flashes or night sweats. Hematologic/Lymphatic Denies easy bruising or bleeding. The patient denies any tender or palpable lymph nodes. Respiratory Denies dyspnea on exertion, chest pain, cough or hemoptysis. Denies orthopnea. Cardiovascular Denies anginal chest pain, palpitations or orthopnea. Gastrointestinal Denies nausea, vomiting, diarrhea, GI bleeding, or constipation. Denies change in bowel habits and/or stool color, no heartburn or early satiety. Genitourinary (F) No hematuria, hesitancy, incontinence, vaginal bleeding, discharge or other problems with urination. Musculoskeletal Denies joint pain, swelling or redness. No decreased range of motion. Integumentary Denies chronic rashes, inflammation, ulcerations or skin changes. Neurologic Denies headache, blurred vision, and no areas of focal weakness or numbness. Normal gait. No sensory problems. Psychiatric Denies insomnia, depression, silver or mood swings. Vital Signs: Performed on Dec 09, 2019 12:47 Height - 61.00 in Weight - 103.4 lbs (LOW) BSA - 1.43 sq.m BMI - 19.54 Temperature - 97.5 F (LOW) Pulse - 100 /min Respiration - 20 /min BP - 150/94 mm(hg) (HIGH) O2 Sat - 92 % (LOW) Pain - 0,2 - Ambulatory/capable of all self-care, unable to perform any work activities. Up and about more than 50% of waking hours. (ECOG) Physical Examination: Constitutional Alert, oriented, no acute distress. Skin pink, warm and dry. Head Normocephalic; atraumatic. Eyes Conjunctivae and sclerae are clear and without icterus. Pupils are reactive and equal. ENMT No oral exudates, ulcers, masses, thrush or mucositis. Oropharynx clear. Tongue normal. Neck No jugular venous distension. Hematologic/Lymphatic No petechiae or purpura. Respiratory Lungs are clear to auscultation without rhonchi or wheezing. Cardiovascular Regular rate and rhythm of heart without murmurs,clicks, gallops or rubs. Abdomen Non-tender, non-distended, no masses, ascites. Good bowel sounds noted in all quads. No guarding or rebound tenderness. No pulsatile masses. Back/Spine Non-tender to palpation. Extremities No visible deformities, no cyanosis, clubbing or edema. Musculoskeletal No tenderness or swelling, normal range of motion without obvious weakness. Integumentary No rashes or lesions. Neurologic No sensory or motor deficits, normal cerebellar function, normal gait. Psychiatric Alert and oriented times three. Coherent speech. Verbalizes understanding of our discussions today. Laboratory:Test performed on Dec 08, 2019 03:25 Sodium 141 mmol/L Potassium 4.2 mmol/L Chloride 105 mmol/L CO2 28 mmol/L Anion Gap 12.2 BUN 12 mg/dL Creatinine 0.5 mg/dL Cr Clearance (Est) 72.3900 mL/min Glucose 99 mg/dL Calcium 9.4 mg/dL Protein, Total 6.0 g/dL Albumin 3.0 g/dL Globulin 3.0 g/dL Bilirubin, Total 0.3 mg/dL ALT (SGPT) 19 U/L AST (SGOT) 33 U/L Alkaline Phosphatase 196 IU/L WBC 3.1 10 3/uL RBC 3.40 10 6/uL HGB 10.1 g/dL HCT 32.4 % MCV 95.3 fL MCH 29.7 pg MCHC 31.2 g/dL RDW 13.5 % Platelet Count 113 10 3/cmm MPV 10.4 fL Neutrophils 2.0 10 3/uL Lymphocytes 0.5 10 3/uL Monocytes 0.4 10 3/uL Eosinophils 0.1 10 3/uL Basophils 0.0 10 3/uL Neutrophil % 66.4 % Lymphocyte % 16.0 % Monocyte % 13.7 % Eosinophil % 2.9 % Basophils % 0.7 % Impression: 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 3 separate hepatic lesions are identified, indicating multifocal hepatic metastatic disease. The index lesion in the left hepatic lobe measures 2.5 cm with SUV of 31.1. Smaller right hepatic lobe lesions have SUV of 10.5 Approximately 30 pounds Weight loss due to Dysphagia due to above Hypertension Dr Fischer discussed with Mrs Pro her disease status clinically and radiologically. She has stage IV disease with liver metastases. She was symptomatic due to distal esophageal primary. Case was discussed with Dr. Hector , as per his evaluation patient has partial obstruction and liquid diet maybe tolerable. Considering her age and stage of disease, recommended systemic chemotherapy with modified dose FOLFOX and hercetin ,as she is kne2gno positive and repeat EGD after 3 cycles to assess the response. Plan for CT PET scan after 6 doses. Ms. Pro began her first cycle of modified FOLFOX along with Herceptin (she was HER-2/jordan positive) 0n 11/04/2018. She has tolerated treatment well and has had obvious clinical response. Follow-up CT PET scan done on 12/21/2018 showed excellent response with minimal activity of the distal esophagus consistent with a positive response to therapy. The area had a reported SUV of 3.4 compared to 19.7 on prior study. Multifocal hepatic metastases are now isometabolic to surrounding baseline liver activity, representing a positive response to therapy. No new lesion seen except few reactive lymph nodes in the right hilar, paratracheal and subcarinal area. Follow-up EGD done on 01/29/2019 showed abnormal looking mucosa at the distal third of esophagus, multiple biopsies were obtained. The final pathology report showed Goldstein's esophagitis, no evidence of malignancy. Follow-up PET/CT from March 01, 2019 reported distal esophagus with an SUV of 4.8 up from 3.4 and a significant change. Given the benign biopsy results from January 2019 EGD this is likely inflammatory. Hepatic activity is unremarkable with no evidence of active metastatic disease. The reactive mediastinal nodes previously described are now FDG negative . Follow-up CT PET scan done on 06/07/2019 after 12 dose of FOLFOX/Herceptin showed disease progression at distal esophagus with increased activity-SUV 10.5. At that time chemotherapy was discontinued on 06/03/2019 and due to progressive dysphagia. She was referred to radiation oncology for palliative radiation therapy to distal esophagus which she completed on 08/06/2019. Mrs Pro tolerated palliative radiation to distal esophagus well with significant improvement in her dysphagia. was recommended changing her treatment to maintenance therapy with weekly Herceptin and Taxol 3 weeks on 1 week off. The plan is to do follow-up CT PET scan after 3 cycles. Echocardiogram done on 09/29/2019 showed ejection fraction 65% and bone scan showed abnormal activity in the calvarium but plain x-ray showed no abnormality. MRI scan of the head which showed calvarium bone lesion confirmed with bone scan but plain x-ray did not show any abnormality in the skull bones, these changes could be due to chemotherapy-induced bone marrow changes. Per DR Fischer, we'll monitor. Ms. Pro resumed paclitaxel Herceptin on 10/13/2019. She began again having chemo induced neutropenia with an ANC of 1200 on day 8 cycle 2. She was having some performance status issues and she was sent for followup imaging. Mrs. Pro had follow-up PET CT imaging on October 25, 2019. The result indicated progression of distal esophageal malignant mass (the distal esophageal mass now measures 2.7 cm in diameter with an SUV of 15.2 which is up from her last PET CT of 10.7).; new multifocal hepatic metastatic disease (there is a index lesion in the central left hepatic lobe measuring 1.6 x 2.4 cm with an SUV of 27.8. A segment IVb index lesion measuring 2.6 x 1.9 cm with an SUV of 17.7 and other multiple lesions throughout the liver demonstrating similar uptake).; and a new uptake at the anterior left second rib from a small fracture. Ms. Pro also underwent endoscopy with Dr. Villafana on 2019. There was presence of scarring but without obvious stenosis or stricture with history of esophageal cancer likely status post radiation. The duodenum and stomach were examined with no abnormalities seen. Given that Ms. Pro had so much difficulty tolerating 2 cycles of the paclitaxel and Herceptin due to neutropenia, Dr. Fischer has now recommended that she continuue to pursue chemotherapy with Neupogen support. She resumed her chemotherapy on November 14, 2019. Her ANC at that time was 3400. Her last Neupogen injection was on 11/28/2019. Plan: 1. Proceed with cycle 4-day 1 paclitaxel and Herceptin. Steroid compliance confirmed 2. We will plan to give her Neupogen today as her ANC is 2,000. 3. It was recently elected to put her on a 21-day cycle with plan to give her chemo on days 1 and 8 with day 15 off. 4. We will plan to check a CBC on her next week for interim counts and to see if she possibly could need Neupogen with day 8 treatment plan. She will have in-home labs. 5. Today's labs were reviewed with Mrs. Pro and her daughter and a copy was given to her. WBC 3.1, hemoglobin 10.1, platelets 113,000 ANC is 2,000. Potassium 4.2 creatinine 0.5 LFTs are normal alk phos is 196???presumably due to prior Neupogen. 6. We will plan to see Mrs. Pro back in 1 week with repeat CBC, CMP via in-home labs the day before her scheduled treatment so she will know whether or not to take her steroids. 7. Limited echocardiogram from 08/29/2019 reports an left ventricular ejection fraction of 65%. Grade 1 of 4 diastolic dysfunction, normal to mildly elevated filling pressures. It reported normal left ventricular size, systolic function and wall thickness with no regional wall motion abnormalities. There is mild increase in left atrial size and trace mitral valve regurgitation. Dr. De La Rosa reported no significant changes of prior echocardiogram of 05/09/2019. She will need follow-up limited echocardiogram within 3 to 4 months of this echocardiogram for Herceptin monitoring. 8. She was instructed to contact us in interim should questions or problems arise. Signed By: Suleiman Davies-FARSHAD, WILLIE Fischer MD <<Signature on File>>
== END 2019-12-13 23:59 | disposition home or self-care (01) ==
LOC: ONCMED 05:35
PROVIDERS: Internal Medicine Hematology & Oncology; Family Provider Internal Medicine; PCP Internal Medicine; Visit Provider Nurse Practitioner
DX: Z51.12 Encounter for antineoplastic immunotherapy (principal); C15.5 Malignant neoplasm of lower third of esophagus; C78.7 Secondary malignant neoplasm of liver and intrahepatic bile duct; C79.51 Secondary malignant neoplasm of bone; D70.1 Agranulocytosis secondary to cancer chemotherapy; T45.1X5A Adverse effect of antineoplastic and immunosuppressive drugs, initial encounter; I10 Essential (primary) hypertension; Z79.899 Other long term (current) drug therapy; Z92.21 Personal history of antineoplastic chemotherapy; Z92.3 Personal history of irradiation; Z80.0 Family history of malignant neoplasm of digestive organs; Z80.3 Family history of malignant neoplasm of breast; Z90.49 Acquired absence of other specified parts of digestive tract
CPT/HCPCS: 36415; 36592; 80053; 85025; 96367; 96372; 96413; 96417; 99214; J1100; J1200; J1442; J2469; J3490; J7050; J9267; J9355

== ENCOUNTER 2020-01-08 05:50 | Outpatient (RCR) | payer MEDICARE, SELFPAY ==
[2019-12-15 09:43] LABS: Basophils % 0.8 %; Eosinophils # 0.1 10^3/uL (0.0-0.8); Eosinophils % 4.9 %; Hematocrit 32.9 % (37.0-47.0); Hemoglobin 10.1 g/dL (11.5-15.3); Lymphocytes # 0.5 10^3/uL (0.8-4.8); Lymphocytes % 17.4 %; Mean Corpuscular HGB Conc 30.7 g/dL (30.0-36.0); Mean Corpuscular Hemoglobin 29.4 pg (28.0-34.0); Mean Corpuscular Volume 95.9 fL (81-99); Mean Platelet Volume 10.6 fL (7.4-10.4); Monocytes # 0.3 10^3/uL (0.2-0.9); Monocytes % 10.2 %; Neutrophils # 1.8 10^3/uL (1.8-7.7); Neutrophils % 66.3 %; Nucleated Red Blood Cells % 0 %; Platelet Count 130 10^3/cmm (130-400); Red Blood Count 3.43 10^6/uL (4.1-5.3); Red Cell Distribution Width 13.5 % (12.1-15.1); White Blood Count 2.6 10^3/uL (4.0-10.0)
[2019-12-15 09:57] LABS: Alanine Aminotransferase 19 U/L (0-33); Albumin Level 3.5 g/dL (3.5-5.2); Alkaline Phosphatase 187 IU/L (35-105); Anion Gap 13.5 (5-19); Aspartate Amino Transferase 29 U/L (0-32); Blood Urea Nitrogen 15 mg/dL (8-23); Calcium 9.4 mg/dL (8.5-10.5); Carbon Dioxide 26 mmol/L (22-29); Chloride 105 mmol/L (98-107); Globulin 2.7 g/dL (1.3-4.6); Glucose 105 mg/dL (65-115); Potassium 4.5 mmol/L (3.5-5.1); Sodium 140 mmol/L (136-145); Total Bilirubin 0.4 mg/dL (0.15-1.2); Total Protein 6.2 g/dL (6.6-8.7)
[2019-12-16] MEDS: acetaminophen 325 mg Tablet 650 MG PO (13:30)
[2019-12-16] MEDS: sodium chloride 0.9% 250 ML 75 ML IV (13:30)
--- NOTE | 2019-12-21 14:06 | ONC FU_ITS ---
[facility] Patient Note Patient: Arelis Pro Unit #: [id number]: [id number] Dictated By: Suleiman DaviesDate of Visit: Dec 16, 2019 Onc MED Follow-Up/Prog Note Chief Complaint: Metastatic esophageal cancer with liver metastases History of Present Illness: Ms Pro is a 79-year-old female who initially presented with dysphagia in the summer of 2017. It did get progressively worse, to the point where she only tolerated a liquid diet. She did undergo barium swallow on 09/20/2018 which showed a poor motility throughout and the distal esophagus was dilated. There was a stricture at the gastroesophageal junction. She then underwent EGD on 10/01/2018 which revealed a distal esophageal mass at the 30-35 cm joao. It was biopsied and pathology confirmed infiltrating adenocarcinoma. On 10/05/2018 she underwent PET/CT imaging. He reported a 2.8 x 3 cm GE junction mass with an SUV of 19.7. There were 3 separate hepatic lesions with the largest one in the left hepatic lobe measuring 2.5 cm with SUV of 31.1. Smaller right hepatic lobe lesions have SUVs up to 10.5. There was no evidence of mediastinal or abdominal lymphadenopathy or other metastasis. She complained of dysphagia and only tolerated a liquid diet. She had fatigue and night sweats. She had significant weight loss of 42 pounds over 6 months. patient has history of laparoscopic Trell fundoplication done about 4 years ago with hiatal hernia repair in [place]. Ms Pro was offered treatment with systemic chemotherapy with modified FOLFOX. She was planned to have repeat EGD after 3 cycles to assess response and plan for PET/CT after 6 cycles.. An attempt was made for venous access device placement on 10/22/2018. Informed that she did have a right hemothorax. She does have a left arm PICC line for venous access at this time. No further attempt has been made for venous access device, such as the Port-A-Cath. She began her first cycle of chemotherapy with modified FOLFOX and Herceptin (she was HER-2/jordan positive) on 10/04/2018. After her 2nd dose of Herceptin/FOLFOX, she had dramatic improvement in her swallowing. Follow-up CT PET scan done on 12/21/2018 showed excellent response, now there was minimal activity at the distal esophagus, consistent with positive response to therapy, this area had shown an SUV of 3.4 compared to 19.7 on prior study. Multifocal hepatic metastasis now isometabolic to the surrounding baseline liver activity, representing a positive response to therapy. No new lesions have developed. And mediastinum, new activity in the right hilar lymph node has SUV of 4.6, other nodes in the subcarinal and right paratracheal territories are similarly FDG positive, these are likely reactive . She underwent follow-up EGD on 01/29/2019 which showed an abnormality in the lower third esophagus. The abnormal area looked like mucosa- appreciated at the distal third of esophagus, random and multiple biopies were obtained. The final pathology report showed benign fragment of superficial gastric type mucosa with focal specialized metaplasia, with a rare cellular atypia no evidence of malignancy. Patient has a right groin hernia for which she underwent CT scan of abdomen pelvis on 01/30/2019 which showed metallic foreign body within the distal esophagus, but EGD done on 01/29/2019 showed nothing, Metallic esophageal stent in noted. Small sliding-type hiatal hernia; 2 ill-defined foci of decreased attenuation right lobe liver at sites of prior hepatic metastases Status post cholecystectomy, hysterectomy and appendicectomy CT PET scan done on 03/01/2019 showed the distal esophagus with an SUV of 4.8, compared to 3.4 previously. Hepatic activity is unremarkable no evidence of active metastatic disease reactive mediastinal lymph node previously described are now FDG negative. EGD was done on 01/29/2019 and esophageal biopsy shows benign changes. She tolerated palliative chemotherapy with FOLFOX/Herceptin well except progressive leukopenia/neutropenia. Follow-up PET scan done after 11 dose of FOLFOX plus Herceptin on 06/07/2019 showed new intense activity at the distal esophagus otherwise no other abnormality Because of progressive dysphagia and local disease progression seen on CT PET scan, her chemotherapy was put on hold. She was referred to radiation oncology and underwent palliative radiation therapy. alone to distal esophagus starting from 07/02/2019 through 08/06/2019. She tolerated the radiation well with good palliation and improvement of dysphagia. Mrs Pro tolerated palliative radiation to distal esophagus well with significant improvement in her dysphagia. was recommended changing her treatment to maintenance therapy with weekly Herceptin and Taxol 3 weeks on 1 week off. The plan was to do follow-up CT PET scan after 3 cycles. She began her first dose on 09/08/19. Patient also developed progressive neutropenia/leukopenia and was treated with Neupogen and was given prophylactic antibiotics and her chemotherapy was put on 09/15/2019. She did have an MRI of the brain in early September 2019 and was foung to have no signs of brain metastasis, but did have an area of suspected underlying dural thickening and enhancement. 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 She had followup calvarial xrays that were Negative, no calvarial lesions to correlate with the abnormal bone scan activity. Bilateral anterior rib activity probably posttraumatic, metastatic disease less likely. Resolved previous compression fracture T11 vertebral body activity. Ms. Pro resumed paclitaxel Herceptin on 10/13/2019. She began again having chemo induced neutropenia with an ANC of 1200 on day 8 cycle 2. She was having some performance status issues and she was sent for followup imaging. Mrs. Pro had follow-up PET CT imaging on October 25, 2019. The result indicated progression of distal esophageal malignant mass (the distal esophageal mass now measures 2.7 cm in diameter with an SUV of 15.2 which is up from her last PET CT of 10.7).; new multifocal hepatic metastatic disease (there is a index lesion in the central left hepatic lobe measuring 1.6 x 2.4 cm with an SUV of 27.8. A segment IVb index lesion measuring 2.6 x 1.9 cm with an SUV of 17.7 and other multiple lesions throughout the liver demonstrating similar uptake).; and a new uptake at the anterior left second rib from a small fracture. Mrs. Pro also underwent endoscopy with Dr. Villafana on October 28, 2019. There was presence of scarring but without obvious stenosis or stricture with history of esophageal cancer likely status post radiation. The duodenum and stomach were examined with no abnormalities seen. Given that Mrs. Pro had so much difficulty tolerating 2 cycles of the paclitaxel and Herceptin due to neutropenia, Dr. Fischer has now recommended that she continuue to pursue chemotherapy with added Neupogen support. She resumed her chemotherapy on November 14, 2019. Her ANC at that time was 3400. She received 2 doses of Neupogen and today her ANC is 12,200. Mrs. Pro is here today for follow-up. She states overall she is feeling really well. She states she has had a good week. SShe denies any fever or chills. She states she has been getting around really well. She remains very active taking care of her . She states overall she is still swallowing much better. She denies any new concerns. She has had no nausea. She states overall she feels she is eating good. Her energy is fair. She is able to take care of her without any assistance although her kids do help her with meals and cleaning and such. She states her bowel and bladder have been normal for her. Is not been anything that she has been concerned about. She denies diarrhea. She denies any numbness or tingling in her hands or feet. Her ECOG is 1. Past Medical History: Hypertension Past Surgical History: Cholecystectomy Esophagotomy Hernia repair Hysterectomy Tonsillectomy EGD in [address] Villafana in 2019 Right hemithorax after attempted Port a Cath placement in 2019 Allergies: Advil, Amoxicillin, Codeine Sulfate, darvacet, Fosamax, Gabapentin, Hydrocodone-Acetaminophen, Penicillin V Potassium, tegament, TraMADol HCl, Tylenol with Codeine #3, and Vicodin. Medications: ALPRAZolam 1 Tablet (of 0.5 mg) Oral t.i.d. PRN ClearLax Powder Oral daily PRN Famotidine 1 Tablet (of 40 mg) Oral b.i.d. First-Mouthwash BLM 1 tsp Suspension Mouth/throat four times a day PRN Fluconazole 1 Tablet (of 100 mg) Oral daily PRN Ibuprofen 2 Tablet (of 200 mg) Oral daily Metoprolol Tartrate 0.5 Tablet (of 25 mg) Oral daily Prochlorperazine Maleate 1 Tablet (of 10 mg) Oral q 4 hours PRN Family History: Ms. Pro's mother at age 73: colon cancer. Ms. Pro's father at age 69: type II diabetes. Ms. Pro has 1 brother who is : colon cancer. She has 2 sisters: 1 alive, 1 . Ms. Pro's first sister's breast cancer. Another sister's breast cancer. Social History: Ms. Pro is and she is retired. Ms. Pro has never smoked. She has no history of drinking. Review Of Symptoms: Constitutional Denies fevers, chills, night sweats, excessive fatigue or weight loss. Marginal appetite. Allergic/Immunologic No reactions. Eyes Denies significant visual changes-she has had increased blurry vision off and on. No diplopia. No amaurosis. ENMT Denies changes in hearing, sore throat, mouth sores, difficulty or changes in swallowing ability, and/or sinus drainage. Endocrine No diabetes, thyroid disease or hormone replacement. Denies hot flashes or night sweats. Hematologic/Lymphatic Denies easy bruising or bleeding. The patient denies any tender or palpable lymph nodes. Respiratory Denies dyspnea on exertion, chest pain, cough or hemoptysis. Denies orthopnea. Cardiovascular Denies anginal chest pain, palpitations or orthopnea. Gastrointestinal Denies nausea, vomiting, diarrhea, GI bleeding, or constipation. Denies change in bowel habits and/or stool color, no heartburn-(since starting Pepcid) or early satiety. Genitourinary (F) No hematuria, hesitancy, incontinence, vaginal bleeding, discharge or other problems with urination. Musculoskeletal Denies joint pain, swelling or redness. No decreased range of motion. Integumentary Denies chronic rashes, inflammation, ulcerations or skin changes. Neurologic Denies headache, blurred vision, and no areas of focal weakness or numbness. Normal gait. No sensory problems. Psychiatric Denies insomnia, depression, silver or mood swings. Vital Signs: Performed on Dec 16, 2019 12:20 Height - 61.00 in Weight - 103.8 lbs (HIGH) BSA - 1.43 sq.m BMI - 19.61 Temperature - 98.4 F Pulse - 71 /min Respiration - 16 /min BP - 136/80 mm(hg) O2 Sat - 97 % Pain - 0,1 - No physically strenuous activity, but ambulatory and able to carry out light or sedentary work (e.g. office work, light house work). (ECOG) Physical Examination: Constitutional Alert, oriented, no acute distress. Skin pink, warm and dry. Head Normocephalic; atraumatic. Eyes Conjunctivae and sclerae are clear and without icterus. Pupils are reactive and equal. ENMT No oral exudates, ulcers, masses, thrush or mucositis. Oropharynx clear. Tongue normal. Neck No jugular venous distension. Hematologic/Lymphatic No petechiae or purpura. Respiratory Lungs are clear to auscultation without rhonchi or wheezing. Cardiovascular Regular rate and rhythm of heart without murmurs,clicks, gallops or rubs. Abdomen Non-tender, non-distended, no masses, ascites. Good bowel sounds noted in all quads. No guarding or rebound tenderness. No pulsatile masses. Back/Spine Non-tender to palpation. Extremities No visible deformities, no cyanosis, clubbing or edema. Musculoskeletal No tenderness or swelling, normal range of motion without obvious weakness. Integumentary No rashes or lesions. Neurologic No sensory or motor deficits, normal cerebellar function, normal gait. Psychiatric Alert and oriented times three. Coherent speech. Verbalizes understanding of our discussions today. Laboratory:See Flow sheet and below Impression: 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 3 separate hepatic lesions are identified, indicating multifocal hepatic metastatic disease. The index lesion in the left hepatic lobe measures 2.5 cm with SUV of 31.1. Smaller right hepatic lobe lesions have SUV of 10.5 Approximately 30 pounds Weight loss due to Dysphagia at diagnosis-due to above Hypertension Dr Fischer discussed with Mrs Pro her disease status clinically and radiologically. She has stage IV disease with liver metastases. She was symptomatic due to distal esophageal primary. Case was discussed with Dr. Hector , as per his evaluation patient has partial obstruction and liquid diet maybe tolerable. Considering her age and stage of disease, recommended systemic chemotherapy with modified dose FOLFOX and hercetin ,as she is [id number] positive and repeat EGD after 3 cycles to assess the response. Plan for CT PET scan after 6 doses. Ms. Pro began her first cycle of modified FOLFOX along with Herceptin (she was HER-2/jordan positive) 0n 11/04/2018. She has tolerated treatment well and has had obvious clinical response. Follow-up CT PET scan done on 12/21/2018 showed excellent response with minimal activity of the distal esophagus consistent with a positive response to therapy. The area had a reported SUV of 3.4 compared to 19.7 on prior study. Multifocal hepatic metastases are now isometabolic to surrounding baseline liver activity, representing a positive response to therapy. No new lesion seen except few reactive lymph nodes in the right hilar, paratracheal and subcarinal area. Follow-up EGD done on 01/29/2019 showed abnormal looking mucosa at the distal third of esophagus, multiple biopsies were obtained. The final pathology report showed Goldstein's esophagitis, no evidence of malignancy. Follow-up PET/CT from March 01, 2019 reported distal esophagus with an SUV of 4.8 up from 3.4 and a significant change. Given the benign biopsy results from January 2019 EGD this is likely inflammatory. Hepatic activity is unremarkable with no evidence of active metastatic disease. The reactive mediastinal nodes previously described are now FDG negative . Follow-up CT PET scan done on 06/07/2019 after 12 dose of FOLFOX/Herceptin showed disease progression at distal esophagus with increased activity-SUV 10.5. At that time chemotherapy was discontinued on 06/03/2019 and due to progressive dysphagia. She was referred to radiation oncology for palliative radiation therapy to distal esophagus which she completed on 08/06/2019. Mrs Pro tolerated palliative radiation to distal esophagus well with significant improvement in her dysphagia. was recommended changing her treatment to maintenance therapy with weekly Herceptin and Taxol 3 weeks on 1 week off. The plan is to do follow-up CT PET scan after 3 cycles. Echocardiogram done on 09/29/2019 showed ejection fraction 65% and bone scan showed abnormal activity in the calvarium but plain x-ray showed no abnormality. MRI scan of the head which showed calvarium bone lesion confirmed with bone scan but plain x-ray did not show any abnormality in the skull bones, these changes could be due to chemotherapy-induced bone marrow changes. Per DR Fischer, we'll monitor. Ms. Pro resumed paclitaxel Herceptin on 10/13/2019. She began again having chemo induced neutropenia with an ANC of 1200 on day 8 cycle 2. She was having some performance status issues and she was sent for followup imaging. Mrs. Pro had follow-up PET CT imaging on October 25, 2019. The result indicated progression of distal esophageal malignant mass (the distal esophageal mass now measures 2.7 cm in diameter with an SUV of 15.2 which is up from her last PET CT of 10.7).; new multifocal hepatic metastatic disease (there is a index lesion in the central left hepatic lobe measuring 1.6 x 2.4 cm with an SUV of 27.8. A segment IVb index lesion measuring 2.6 x 1.9 cm with an SUV of 17.7 and other multiple lesions throughout the liver demonstrating similar uptake).; and a new uptake at the anterior left second rib from a small fracture. Ms. Pro also underwent endoscopy with Dr. Villafana on 2019. There was presence of scarring but without obvious stenosis or stricture with history of esophageal cancer likely status post radiation. The duodenum and stomach were examined with no abnormalities seen. Given that Ms. Pro had so much difficulty tolerating 2 cycles of the paclitaxel and Herceptin due to neutropenia, Dr. Fischer has now recommended that she continuue to pursue chemotherapy with Neupogen support. She resumed her chemotherapy on November 14, 2019. Her ANC at that time was 3400. Her last Neupogen injection was on 11/28/2019. Plan: 1. Proceed with cycle 4-day 8 paclitaxel and Herceptin. Steroid compliance confirmed 2. We will plan to give her Neupogen today as her ANC is 1800. 3. It was recently elected to put her on a 21-day cycle with plan to give her chemo on days 1 and 8 with day 15 off. 4. We will plan to check a CBC on her next week for interim counts. She will have in-home labs. 5. December 15, 2019 labs were reviewed with Mrs. Pro and her daughter and a copy was given to her. WBC 2.8, hemoglobin 10.1, platelets 130,000 ANC is 1800. Potassium 4.5 creatinine 0.5 LFTs are normal alk phos is 187. 6. We will plan to see Mrs. Pro back in 2 weeks with repeat CBC, CMP via in-home labs the day before her scheduled treatment so she will know whether or not to take her steroids. 7. Limited echocardiogram from 08/29/2019 reports an left ventricular ejection fraction of 65%. Grade 1 of 4 diastolic dysfunction, normal to mildly elevated filling pressures. It reported normal left ventricular size, systolic function and wall thickness with no regional wall motion abnormalities. There is mild increase in left atrial size and trace mitral valve regurgitation. Dr. De La Rosa reported no significant changes of prior echocardiogram of 05/09/2019. She will need follow-up limited echocardiogram within 3 to 4 months of this echocardiogram for Herceptin monitoring. 8. She was instructed to contact us in interim should questions or problems arise. Signed By: Suleiman Davies-, CNEvy Fischer MD <<Signature on File>>
[2019-12-22 08:55] LABS: Basophils % 0.5 %; Eosinophils # 0.1 10^3/uL (0.0-0.8); Eosinophils % 4.3 %; Hematocrit 32.2 % (37.0-47.0); Hemoglobin 9.8 g/dL (11.5-15.3); Lymphocytes # 0.3 10^3/uL (0.8-4.8); Lymphocytes % 17.6 %; Mean Corpuscular HGB Conc 30.4 g/dL (30.0-36.0); Mean Corpuscular Hemoglobin 29.4 pg (28.0-34.0); Mean Corpuscular Volume 96.7 fL (81-99); Mean Platelet Volume 10.4 fL (7.4-10.4); Monocytes # 0.5 10^3/uL (0.2-0.9); Monocytes % 24.1 %; Neutrophils % 52.4 %; Nucleated Red Blood Cells % 0 %; Platelet Count 131 10^3/cmm (130-400); Red Blood Count 3.33 10^6/uL (4.1-5.3); Red Cell Distribution Width 13.8 % (12.1-15.1); White Blood Count 1.9 10^3/uL (4.0-10.0)
[2019-12-22 09:21] LABS: Alanine Aminotransferase 17 U/L (0-33); Albumin Level 3.1 g/dL (3.5-5.2); Alkaline Phosphatase 199 IU/L (35-105); Anion Gap 13.5 (5-19); Aspartate Amino Transferase 25 U/L (0-32); Blood Urea Nitrogen 10 mg/dL (8-23); Calcium 9.2 mg/dL (8.5-10.5); Carbon Dioxide 27 mmol/L (22-29); Chloride 104 mmol/L (98-107); Globulin 2.7 g/dL (1.3-4.6); Glucose 83 mg/dL (65-115); Osmolality Calculated 285 mOsm/kg (285-295); Potassium 4.5 mmol/L (3.5-5.1); Sodium 140 mmol/L (136-145); Total Bilirubin 0.3 mg/dL (0.15-1.2); Total Protein 5.8 g/dL (6.6-8.7)
[2019-12-29 10:00] LABS: Basophils % 1.6 %; Eosinophils # 0.1 10^3/uL (0.0-0.8); Eosinophils % 3.9 %; Hematocrit 32.4 % (37.0-47.0); Hemoglobin 9.8 g/dL (11.5-15.3); Lymphocytes # 0.6 10^3/uL (0.8-4.8); Lymphocytes % 22.3 %; Mean Corpuscular HGB Conc 30.2 g/dL (30.0-36.0); Mean Corpuscular Hemoglobin 30.2 pg (28.0-34.0); Mean Corpuscular Volume 99.7 fL (81-99); Mean Platelet Volume 10.2 fL (7.4-10.4); Monocytes # 0.4 10^3/uL (0.2-0.9); Monocytes % 15.2 %; Neutrophils # 1.4 10^3/uL (1.8-7.7); Neutrophils % 56.2 %; Nucleated Red Blood Cells % 0 %; Platelet Count 150 10^3/cmm (130-400); Red Blood Count 3.25 10^6/uL (4.1-5.3); Red Cell Distribution Width 14.3 % (12.1-15.1); White Blood Count 2.6 10^3/uL (4.0-10.0)
[2019-12-29 10:10] LABS: Alanine Aminotransferase 11 U/L (0-33); Albumin Level 3.4 g/dL (3.5-5.2); Alkaline Phosphatase 207 IU/L (35-105); Anion Gap 7.6 (5-19); Aspartate Amino Transferase 31 U/L (0-32); Blood Urea Nitrogen 12 mg/dL (8-23); Calcium 9.1 mg/dL (8.5-10.5); Carbon Dioxide 33 mmol/L (22-29); Chloride 107 mmol/L (98-107); Globulin 2.5 g/dL (1.3-4.6); Glucose 79 mg/dL (65-115); Osmolality Calculated 291 mOsm/kg (285-295); Potassium 4.6 mmol/L (3.5-5.1); Sodium 143 mmol/L (136-145); Total Bilirubin 0.3 mg/dL (0.15-1.2); Total Protein 5.9 g/dL (6.6-8.7)
[2019-12-31 15:15] LABS: Basophils % 0.2 %; Eosinophils # 0.1 10^3/uL (0.0-0.8); Eosinophils % 0.3 %; Hematocrit 33.3 % (37.0-47.0); Hemoglobin 10.5 g/dL (11.5-15.3); Lymphocytes # 0.7 10^3/uL (0.8-4.8); Lymphocytes % 3.4 %; Mean Corpuscular HGB Conc 31.5 g/dL (30.0-36.0); Mean Corpuscular Hemoglobin 31.2 pg (28.0-34.0); Mean Corpuscular Volume 98.8 fL (81-99); Monocytes # 0.8 10^3/uL (0.2-0.9); Monocytes % 3.8 %; Neutrophils # 19.9 10^3/uL (1.8-7.7); Neutrophils % 91.2 %; Nucleated Red Blood Cells % 0 %; Platelet Count 152 10^3/cmm (130-400); Red Blood Count 3.37 10^6/uL (4.1-5.3); Red Cell Distribution Width 14.5 % (12.1-15.1); White Blood Count 21.8 10^3/uL (4.0-10.0)
[2020-01-01] MEDS: diphenhydrAMINE 25 mg Capsule PO (13:15)
[2020-01-01] MEDS: acetaminophen 325 mg Tablet 650 MG PO (13:15)
--- NOTE | 2020-01-01 13:38 | ONC FU_ITS ---
Dr. Fischer follow up note Patient: Arelis Pro Unit #: [id number]: 1940 Dicatated By: Tamar Fischer M.D.Date of Visit:Jan 01, 2020 Onc Med Follow-up/Prog Note History of Present Illness: Ms Pro is a 79-year-old female who initially presented with dysphagia in the summer of 2017. It did get progressively worse, to the point where she only tolerated a liquid diet. She did undergo barium swallow on 09/20/2018 which showed a poor motility throughout and the distal esophagus was dilated. There was a stricture at the gastroesophageal junction. She then underwent EGD on 10/01/2018 which revealed a distal esophageal mass at the 30-35 cm joao. It was biopsied and pathology confirmed infiltrating adenocarcinoma. On 10/05/2018 she underwent PET/CT imaging. He reported a 2.8 x 3 cm GE junction mass with an SUV of 19.7. There were 3 separate hepatic lesions with the largest one in the left hepatic lobe measuring 2.5 cm with SUV of 31.1. Smaller right hepatic lobe lesions have SUVs up to 10.5. There was no evidence of mediastinal or abdominal lymphadenopathy or other metastasis. She complained of dysphagia and only tolerated a liquid diet. She had fatigue and night sweats. She had significant weight loss of 42 pounds over 6 months. patient has history of laparoscopic Trell fundoplication done about 4 years ago with hiatal hernia repair in [place]. Ms Pro was offered treatment with systemic chemotherapy with modified FOLFOX. She was planned to have repeat EGD after 3 cycles to assess response and plan for PET/CT after 6 cycles.. An attempt was made for venous access device placement on 10/22/2018. Informed that she did have a right hemothorax. She does have a left arm PICC line for venous access at this time. No further attempt has been made for venous access device, such as the Port-A-Cath. She began her first cycle of chemotherapy with modified FOLFOX and Herceptin (she was HER-2/jordan positive) on 10/04/2018. After her 2nd dose of Herceptin/FOLFOX, she had dramatic improvement in her swallowing. Follow-up CT PET scan done on 12/21/2018 showed excellent response, now there was minimal activity at the distal esophagus, consistent with positive response to therapy, this area had shown an SUV of 3.4 compared to 19.7 on prior study. Multifocal hepatic metastasis now isometabolic to the surrounding baseline liver activity, representing a positive response to therapy. No new lesions have developed. And mediastinum, new activity in the right hilar lymph node has SUV of 4.6, other nodes in the subcarinal and right paratracheal territories are similarly FDG positive, these are likely reactive . She underwent follow-up EGD on 01/29/2019 which showed an abnormality in the lower third esophagus. The abnormal area looked like mucosa- appreciated at the distal third of esophagus, random and multiple biopies were obtained. The final pathology report showed benign fragment of superficial gastric type mucosa with focal specialized metaplasia, with a rare cellular atypia no evidence of malignancy. Patient has a right groin hernia for which she underwent CT scan of abdomen pelvis on 01/30/2019 which showed metallic foreign body within the distal esophagus, but EGD done on 01/29/2019 showed nothing, Metallic esophageal stent in noted. Small sliding-type hiatal hernia; 2 ill-defined foci of decreased attenuation right lobe liver at sites of prior hepatic metastases Status post cholecystectomy, hysterectomy and appendicectomy CT PET scan done on 03/01/2019 showed the distal esophagus with an SUV of 4.8, compared to 3.4 previously. Hepatic activity is unremarkable no evidence of active metastatic disease reactive mediastinal lymph node previously described are now FDG negative. EGD was done on 01/29/2019 and esophageal biopsy shows benign changes. She tolerated palliative chemotherapy with FOLFOX/Herceptin well except progressive leukopenia/neutropenia. Follow-up PET scan done after 11 dose of FOLFOX plus Herceptin on 06/07/2019 showed new intense activity at the distal esophagus otherwise no other abnormality Because of progressive dysphagia and local disease progression seen on CT PET scan, her chemotherapy was put on hold. She was referred to radiation oncology and underwent palliative radiation therapy. alone to distal esophagus starting from 07/02/2019 through 08/06/2019. She tolerated the radiation well with good palliation and improvement of dysphagia. Mrs Pro tolerated palliative radiation to distal esophagus well with significant improvement in her dysphagia. was recommended changing her treatment to maintenance therapy with weekly Herceptin and Taxol 3 weeks on 1 week off. The plan was to do follow-up CT PET scan after 3 cycles. She began her first dose on 09/08/19. Patient also developed progressive neutropenia/leukopenia and was treated with Neupogen and was given prophylactic antibiotics and her chemotherapy was put on 09/15/2019. She did have an MRI of the brain in early September 2019 and was foung to have no signs of brain metastasis, but did have an area of suspected underlying dural thickening and enhancement. 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 She had followup calvarial xrays that were Negative, no calvarial lesions to correlate with the abnormal bone scan activity. Bilateral anterior rib activity probably posttraumatic, metastatic disease less likely. Resolved previous compression fracture T11 vertebral body activity. Ms. Pro resumed paclitaxel Herceptin on 10/13/2019. She began again having chemo induced neutropenia with an ANC of 1200 on day 8 cycle 2. She was having some performance status issues and she was sent for followup imaging. Mrs. Pro had follow-up PET CT imaging on October 25, 2019. The result indicated progression of distal esophageal malignant mass (the distal esophageal mass now measures 2.7 cm in diameter with an SUV of 15.2 which is up from her last PET CT of 10.7).; new multifocal hepatic metastatic disease (there is a index lesion in the central left hepatic lobe measuring 1.6 x 2.4 cm with an SUV of 27.8. A segment IVb index lesion measuring 2.6 x 1.9 cm with an SUV of 17.7 and other multiple lesions throughout the liver demonstrating similar uptake).; and a new uptake at the anterior left second rib from a small fracture. Mrs. Pro also underwent endoscopy with Dr. Villafana on October 28, 2019. There was presence of scarring but without obvious stenosis or stricture with history of esophageal cancer likely status post radiation. The duodenum and stomach were examined with no abnormalities seen. Given that Mrs. Pro had so much difficulty tolerating 2 cycles of the paclitaxel and Herceptin due to neutropenia, has now recommended that she continuue to pursue chemotherapy with added Neupogen support. She resumed her chemotherapy on November 14, 2019. Came for follow-up, denies any specific complaints except progressive dysphagia more to the liquids. Her EGD done in October 2019 showed some stricture but endoscope could pass through it so no dilatation was done that time. No nausea or vomiting no fever or chills no hemoptysis or hematemesis no diarrhea constipation no jaundice. No palpitation or lower extremity edema or peripheral numbness Tolerating systemic therapy with Herceptin/Taxol well Medications: ALPRAZolam 1 Tablet (of 0.5 mg) Oral t.i.d. PRN, ClearLax Powder Oral daily PRN, Famotidine 1 Tablet (of 40 mg) Oral b.i.d., First-Mouthwash BLM 1 tsp Suspension Mouth/throat four times a day PRN, Fluconazole 1 Tablet (of 100 mg) Oral daily PRN, Ibuprofen 2 Tablet (of 200 mg) Oral daily, Metoprolol Tartrate 0.5 Tablet (of 25 mg) Oral daily, Prochlorperazine Maleate 1 Tablet (of 10 mg) Oral q 4 hours PRN Allergies: Advil, Amoxicillin, Codeine Sulfate, darvacet, Fosamax, Gabapentin, Hydrocodone-Acetaminophen, Penicillin V Potassium, tegament, TraMADol HCl, Tylenol with Codeine #3, and Vicodin. Review of Systems: Review of Systems is not available for this patient. Vital Signs: Performed on Jan 01, 2020 12:18 Height - 61.00 in Weight - 102.0 lbs (LOW) BSA - 1.42 sq.m BMI - 19.27 Temperature - 97.8 F (LOW) Pulse - 92 /min Respiration - 18 /min BP - 123/76 mm(hg) O2 Sat - 96 % Pain - 0 Performance Status: 1 - No physically strenuous activity, but ambulatory and able to carry out light or sedentary work (e.g. office work, light house work). (ECOG) Physical Examination: ENMT - No oral exudates, ulcers, masses, thrush or mucositis. Oropharynx clear. Tongue normal, Respiratory - Lungs are clear to auscultation without rhonchi or wheezing, Cardiovascular - Regular rate and rhythm of heart, Abdomen - Non-tender, non-distended, Good bowel sounds. No guarding or rebound tenderness. No pulsatile masses, Extremities - no edema. Lab/Imaging: Test performed on Dec 29, 2019 03:50 Sodium 143 mmol/L Potassium 4.6 mmol/L Chloride 107 mmol/L CO2 33 mmol/L Anion Gap 7.6 BUN 12 mg/dL Creatinine 0.5 mg/dL Cr Clearance (Est) 72.3900 mL/min Glucose 79 mg/dL Calcium 9.1 mg/dL Protein, Total 5.9 g/dL Albumin 3.4 g/dL Globulin 2.5 g/dL Bilirubin, Total 0.3 mg/dL ALT (SGPT) 11 U/L AST (SGOT) 31 U/L Alkaline Phosphatase 207 IU/L WBC 2.6 10 3/uL RBC 3.25 10 6/uL HGB 9.8 g/dL HCT 32.4 % MCV 99.7 fL MCH 30.2 pg MCHC 30.2 g/dL RDW 14.3 % Platelet Count 150 10 3/cmm MPV 10.2 fL Neutrophils 1.4 10 3/uL Lymphocytes 0.6 10 3/uL Monocytes 0.4 10 3/uL Eosinophils 0.1 10 3/uL Basophils 0.0 10 3/uL Neutrophil % 56.2 % Lymphocyte % 22.3 % Monocyte % 15.2 % Eosinophil % 3.9 % Basophils % 1.6 % Test performed on Nov 19, 2019 13:57 CBC Slide Review Slide Review Perform Test performed on Oct 29, 2019 12:25 Manual Lymphocytes 16.1 % Manual Monocytes 21.4 % Manual Eosinophils 3.6 % Manual Basophils 1.2 % Test performed on Oct 06, 2019 14:00 BUN/Creatinine Ratio 29 Absolute Value A/G Ratio 1.5 Absolute Value Impression: 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 3 separate hepatic lesions are identified, indicating multifocal hepatic metastatic disease. The index lesion in the left hepatic lobe measures 2.5 cm with SUV of 31.1. Smaller right hepatic lobe lesions have SUV of 10.5 Approximately 30 pounds Weight loss due to Dysphagia due to above Hypertension Dr Fischer discussed with Mrs Pro her disease status clinically and radiologically. She has stage IV disease with liver metastases. She was symptomatic due to distal esophageal primary. Case was discussed with Dr. Hector , as per his evaluation patient has partial obstruction and liquid diet maybe tolerable. Considering her age and stage of disease, recommended systemic chemotherapy with modified dose FOLFOX and hercetin ,as she is [id number] positive and repeat EGD after 3 cycles to assess the response. Plan for CT PET scan after 6 doses. Ms. Pro began her first cycle of modified FOLFOX along with Herceptin (she was HER-2/jordan positive) 0n 11/04/2018. She has tolerated treatment well and has had obvious clinical response. Follow-up CT PET scan done on 12/21/2018 showed excellent response with minimal activity of the distal esophagus consistent with a positive response to therapy. The area had a reported SUV of 3.4 compared to 19.7 on prior study. Multifocal hepatic metastases are now isometabolic to surrounding baseline liver activity, representing a positive response to therapy. No new lesion seen except few reactive lymph nodes in the right hilar, paratracheal and subcarinal area. Follow-up EGD done on 01/29/2019 showed abnormal looking mucosa at the distal third of esophagus, multiple biopsies were obtained. The final pathology report showed Goldstein's esophagitis, no evidence of malignancy. Follow-up PET/CT from March 01, 2019 reported distal esophagus with an SUV of 4.8 up from 3.4 and a significant change. Given the benign biopsy results from January 2019 EGD this is likely inflammatory. Hepatic activity is unremarkable with no evidence of active metastatic disease. The reactive mediastinal nodes previously described are now FDG negative . Follow-up CT PET scan done on 06/07/2019 after 12 dose of FOLFOX/Herceptin showed disease progression at distal esophagus with increased activity-SUV 10.5. At that time chemotherapy was discontinued on 06/03/2019 and due to progressive dysphagia. She was referred to radiation oncology for palliative radiation therapy to distal esophagus which she completed on 08/06/2019. Mrs Pro tolerated palliative radiation to distal esophagus well with significant improvement in her dysphagia. was recommended changing her treatment to maintenance therapy with weekly Herceptin and Taxol 3 weeks on 1 week off. The plan is to do follow-up CT PET scan after 3 cycles. Echocardiogram done on 09/29/2019 showed ejection fraction 65% and bone scan showed abnormal activity in the calvarium but plain x-ray showed no abnormality. MRI scan of the head which showed calvarium bone lesion confirmed with bone scan but plain x-ray did not show any abnormality in the skull bones, these changes could be due to chemotherapy-induced bone marrow changes. Per DR Fischer, we'll monitor. Ms. Pro resumed paclitaxel Herceptin on 10/13/2019. She began again having chemo induced neutropenia with an ANC of 1200 on day 8 cycle 2. She was having some performance status issues and she was sent for followup imaging. Mrs. Pro had follow-up PET CT imaging on October 25, 2019. The result indicated progression of distal esophageal malignant mass (the distal esophageal mass now measures 2.7 cm in diameter with an SUV of 15.2 which is up from her last PET CT of 10.7).; new multifocal hepatic metastatic disease (there is a index lesion in the central left hepatic lobe measuring 1.6 x 2.4 cm with an SUV of 27.8. A segment IVb index lesion measuring 2.6 x 1.9 cm with an SUV of 17.7 and other multiple lesions throughout the liver demonstrating similar uptake).; and a new uptake at the anterior left second rib from a small fracture. Ms. Pro also underwent endoscopy with Dr. Villafana on 2019. There was presence of scarring but without obvious stenosis or stricture with history of esophageal cancer likely status post radiation. The duodenum and stomach were examined with no abnormalities seen. Given that Ms. Pro had so much difficulty tolerating 2 cycles of the paclitaxel and Herceptin due to neutropenia, has now recommended that she continuue to pursue chemotherapy with Neupogen support. She resumed her chemotherapy on November 14, 2019. Plan: Discussed with patient regarding her labs white blood count 21.8 hemoglobin 10.5 hematocrit 33.3 platelets 152,000 Clinically, patient is doing well, tolerating palliative chemotherapy with Taxol/Herceptin well but with expected side effects. We'll proceed with next weekly dose of Taxol/Herceptin today and then she will return to clinic on Sunday for Neupogen daily for 2 days and repeat her CBC on Sunday if her blood count looks reasonable consider next weekly dose of chemotherapy on . Patient return to clinic on with CMP.Next As far as progressive dysphagia is concern could be due to progressive disease or stricture. We will refer her to Dr. browning and hopefully she'll benefit from esophageal dilatation. In the meantime patient was advised to eat small meals and chew well Signed By: Tamar Fischer M.D. <<Signature on File>>
[2020-01-07 11:19] LABS: Basophils # 0.1 10^3/uL (0.0-0.1); Basophils % 0.2 %; Eosinophils # 0.1 10^3/uL (0.0-0.8); Eosinophils % 0.2 %; Hematocrit 37.8 % (37.0-47.0); Hemoglobin 11.6 g/dL (11.5-15.3); Lymphocytes # 1.1 10^3/uL (0.8-4.8); Lymphocytes % 1.6 %; Mean Corpuscular HGB Conc 30.7 g/dL (30.0-36.0); Mean Corpuscular Hemoglobin 30.9 pg (28.0-34.0); Mean Corpuscular Volume 100.5 fL (81-99); Mean Platelet Volume 11.1 fL (7.4-10.4); Monocytes # 1.9 10^3/uL (0.2-0.9); Monocytes % 2.8 %; Neutrophils # 60.9 10^3/uL (1.8-7.7); Neutrophils % 89.9 %; Nucleated Red Blood Cells % 0 %; Platelet Count 124 10^3/cmm (130-400); Red Blood Count 3.76 10^6/uL (4.1-5.3); Red Cell Distribution Width 14.7 % (12.1-15.1)
[2020-01-07 11:30] LABS: Alanine Aminotransferase 23 U/L (0-33); Albumin Level 3.4 g/dL (3.5-5.2); Alkaline Phosphatase 325 IU/L (35-105); Anion Gap 14.9 (5-19); Aspartate Amino Transferase 42 U/L (0-32); Blood Urea Nitrogen 9 mg/dL (8-23); Calcium 9.3 mg/dL (8.5-10.5); Carbon Dioxide 25 mmol/L (22-29); Chloride 102 mmol/L (98-107); Globulin 2.4 g/dL (1.3-4.6); Glucose 69 mg/dL (65-115); Osmolality Calculated 280 mOsm/kg (285-295); Potassium 3.9 mmol/L (3.5-5.1); Sodium 138 mmol/L (136-145); Total Bilirubin 0.5 mg/dL (0.15-1.2); Total Protein 5.8 g/dL (6.6-8.7)
[2020-01-07 11:57] LABS: White Blood Count 67.7 10^3/uL (4.0-10.0)
[2020-01-07 11:58] LABS: Slide Review Slide Review Perform
--- NOTE | 2020-01-08 16:31 | ONC FU_ITS ---
Dr. Fischer follow up note Patient: Arelis Pro Unit #: [id number]: [id number] Dicatated By: Tamar Fischer M.D.Date of Visit:Jan 08, 2020 Onc Med Follow-up/Prog Note History of Present Illness: Ms Pro is a 79-year-old female who initially presented with dysphagia in the summer of 2017. It did get progressively worse, to the point where she only tolerated a liquid diet. She did undergo barium swallow on 09/20/2018 which showed a poor motility throughout and the distal esophagus was dilated. There was a stricture at the gastroesophageal junction. She then underwent EGD on 10/01/2018 which revealed a distal esophageal mass at the 30-35 cm joao. It was biopsied and pathology confirmed infiltrating adenocarcinoma. On 10/05/2018 she underwent PET/CT imaging. He reported a 2.8 x 3 cm GE junction mass with an SUV of 19.7. There were 3 separate hepatic lesions with the largest one in the left hepatic lobe measuring 2.5 cm with SUV of 31.1. Smaller right hepatic lobe lesions have SUVs up to 10.5. There was no evidence of mediastinal or abdominal lymphadenopathy or other metastasis. She complained of dysphagia and only tolerated a liquid diet. She had fatigue and night sweats. She had significant weight loss of 42 pounds over 6 months. patient has history of laparoscopic Trell fundoplication done about 4 years ago with hiatal hernia repair in [place]. Ms Pro was offered treatment with systemic chemotherapy with modified FOLFOX. She was planned to have repeat EGD after 3 cycles to assess response and plan for PET/CT after 6 cycles.. An attempt was made for venous access device placement on 10/22/2018. Informed that she did have a right hemothorax. She does have a left arm PICC line for venous access at this time. No further attempt has been made for venous access device, such as the Port-A-Cath. She began her first cycle of chemotherapy with modified FOLFOX and Herceptin (she was HER-2/jordan positive) on 10/04/2018. After her 2nd dose of Herceptin/FOLFOX, she had dramatic improvement in her swallowing. Follow-up CT PET scan done on 12/21/2018 showed excellent response, now there was minimal activity at the distal esophagus, consistent with positive response to therapy, this area had shown an SUV of 3.4 compared to 19.7 on prior study. Multifocal hepatic metastasis now isometabolic to the surrounding baseline liver activity, representing a positive response to therapy. No new lesions have developed. And mediastinum, new activity in the right hilar lymph node has SUV of 4.6, other nodes in the subcarinal and right paratracheal territories are similarly FDG positive, these are likely reactive . She underwent follow-up EGD on 01/29/2019 which showed an abnormality in the lower third esophagus. The abnormal area looked like mucosa- appreciated at the distal third of esophagus, random and multiple biopies were obtained. The final pathology report showed benign fragment of superficial gastric type mucosa with focal specialized metaplasia, with a rare cellular atypia no evidence of malignancy. Patient has a right groin hernia for which she underwent CT scan of abdomen pelvis on 01/30/2019 which showed metallic foreign body within the distal esophagus, but EGD done on 01/29/2019 showed nothing, Metallic esophageal stent in noted. Small sliding-type hiatal hernia; 2 ill-defined foci of decreased attenuation right lobe liver at sites of prior hepatic metastases Status post cholecystectomy, hysterectomy and appendicectomy CT PET scan done on 03/01/2019 showed the distal esophagus with an SUV of 4.8, compared to 3.4 previously. Hepatic activity is unremarkable no evidence of active metastatic disease reactive mediastinal lymph node previously described are now FDG negative. EGD was done on 01/29/2019 and esophageal biopsy shows benign changes. She tolerated palliative chemotherapy with FOLFOX/Herceptin well except progressive leukopenia/neutropenia. Follow-up PET scan done after 11 dose of FOLFOX plus Herceptin on 06/07/2019 showed new intense activity at the distal esophagus otherwise no other abnormality Because of progressive dysphagia and local disease progression seen on CT PET scan, her chemotherapy was put on hold. She was referred to radiation oncology and underwent palliative radiation therapy. alone to distal esophagus starting from 07/02/2019 through 08/06/2019. She tolerated the radiation well with good palliation and improvement of dysphagia. Mrs Pro tolerated palliative radiation to distal esophagus well with significant improvement in her dysphagia. was recommended changing her treatment to maintenance therapy with weekly Herceptin and Taxol 3 weeks on 1 week off. The plan was to do follow-up CT PET scan after 3 cycles. She began her first dose on 09/08/19. Patient also developed progressive neutropenia/leukopenia and was treated with Neupogen and was given prophylactic antibiotics and her chemotherapy was put on 09/15/2019. She did have an MRI of the brain in early September 2019 and was foung to have no signs of brain metastasis, but did have an area of suspected underlying dural thickening and enhancement. 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 She had followup calvarial xrays that were Negative, no calvarial lesions to correlate with the abnormal bone scan activity. Bilateral anterior rib activity probably posttraumatic, metastatic disease less likely. Resolved previous compression fracture T11 vertebral body activity. Ms. Pro resumed paclitaxel Herceptin on 10/13/2019. She began again having chemo induced neutropenia with an ANC of 1200 on day 8 cycle 2. She was having some performance status issues and she was sent for followup imaging. Mrs. Pro had follow-up PET CT imaging on October 25, 2019. The result indicated progression of distal esophageal malignant mass (the distal esophageal mass now measures 2.7 cm in diameter with an SUV of 15.2 which is up from her last PET CT of 10.7).; new multifocal hepatic metastatic disease (there is a index lesion in the central left hepatic lobe measuring 1.6 x 2.4 cm with an SUV of 27.8. A segment IVb index lesion measuring 2.6 x 1.9 cm with an SUV of 17.7 and other multiple lesions throughout the liver demonstrating similar uptake).; and a new uptake at the anterior left second rib from a small fracture. Mrs. Pro also underwent endoscopy with Dr. Mahoney on October 28, 2019. There was presence of scarring but without obvious stenosis or stricture with history of esophageal cancer likely status post radiation. The duodenum and stomach were examined with no abnormalities seen. Given that Mrs. Pro had so much difficulty tolerating 2 cycles of the paclitaxel and Herceptin due to neutropenia, has now recommended that she continuue to pursue chemotherapy with added Neupogen support. She resumed her chemotherapy on November 14, 2019. And completed Taxol/Herceptinx 4 on 12/16/2019 and then switched to maintenance Herceptin every 3 weeks on 01/01/2020. Came for follow-up, denies any specific complaint except mild mid back discomfort denies any trauma to her back. Patient also was supposed to see Dr. mahoney for EGD and esophageal dilatation for progressive dysphagia but patient has decided not to go for it Hobbs virus related 'issues'and also not interested in follow-up scans at this time until this issue settled down. No fever or chills no nausea or vomiting no diarrhea constipation, no abdominal pain. No peripheral numbness no lower extremity edema no shortness of breath. Medications: ALPRAZolam 1 Tablet (of 0.5 mg) Oral t.i.d. PRN, ClearLax Powder Oral daily PRN, Famotidine 1 Tablet (of 40 mg) Oral b.i.d., First-Mouthwash BLM 1 tsp Suspension Mouth/throat four times a day PRN, Fluconazole 1 Tablet (of 100 mg) Oral daily PRN, Ibuprofen 2 Tablet (of 200 mg) Oral daily, Metoprolol Tartrate 0.5 Tablet (of 25 mg) Oral daily, Prochlorperazine Maleate 1 Tablet (of 10 mg) Oral q 4 hours PRN Allergies: Advil, Amoxicillin, Codeine Sulfate, darvacet, Fosamax, Gabapentin, Hydrocodone-Acetaminophen, Penicillin V Potassium, tegament, TraMADol HCl, Tylenol with Codeine #3, and Vicodin. Review of Systems: Constitutional - Appetite is fair. Weight is stable. No fever, chills, hot flashes, or night sweats. Energy level is improved, ENMT - No sinus congestion/drainage. No mouth sores. No sore throat or difficulty swallowing, Hematologic/Lymphatic - No abnormal bruising or bleeding, Respiratory - No shortness of breath. No cough. No pleuritic pain or hemoptysis, Cardiovascular - No chest pains, Gastrointestinal - No nausea or vomiting. No heartburn or acid reflux. No diarrhea or constipation. No blood in the stool or black stools, Genitourinary (F) - No dysuria or hematuria. No urinary frequency. No urgency or incontinence, Musculoskeletal - Pt reports occasional bone pain, Neurologic - No headache or dizziness, Psychiatric - No anxiety or depression. No insomnia. Vital Signs: Performed on Jan 08, 2020 11:10 Height - 61.00 in Weight - 101.8 lbs (LOW) BSA - 1.42 sq.m BMI - 19.24 Temperature - 97.8 F (LOW) Pulse - 102 /min (HIGH) Respiration - 22 /min BP - 131/75 mm(hg) O2 Sat - 92 % (LOW) Pain - 8 Performance Status: 1 - No physically strenuous activity, but ambulatory and able to carry out light or sedentary work (e.g. office work, light house work). (ECOG) Physical Examination: ENMT - No oral exudates, ulcers, masses, thrush or mucositis. Oropharynx clear. Tongue normal, Respiratory - Lungs are clear to auscultation without rhonchi or wheezing, Cardiovascular - Regular rate and rhythm of heart, Abdomen - Non-tender, non-distended, Good bowel sounds. No guarding or rebound tenderness. No pulsatile masses, Extremities - no edema. Lab/Imaging: Test performed on Dec 31, 2019 14:40 WBC 21.8 10 3/uL RBC 3.37 10 6/uL HGB 10.5 g/dL HCT 33.3 % MCV 98.8 fL MCH 31.2 pg MCHC 31.5 g/dL RDW 14.5 % Platelet Count 152 10 3/cmm MPV 10.0 fL Neutrophils 19.9 10 3/uL Lymphocytes 0.7 10 3/uL Monocytes 0.8 10 3/uL Eosinophils 0.1 10 3/uL Basophils 0.0 10 3/uL Neutrophil % 91.2 % Lymphocyte % 3.4 % Monocyte % 3.8 % Eosinophil % 0.3 % Basophils % 0.2 % Test performed on Dec 29, 2019 03:50 Sodium 143 mmol/L Potassium 4.6 mmol/L Chloride 107 mmol/L CO2 33 mmol/L Anion Gap 7.6 BUN 12 mg/dL Creatinine 0.5 mg/dL Cr Clearance (Est) 72.3900 mL/min Glucose 79 mg/dL Calcium 9.1 mg/dL Protein, Total 5.9 g/dL Albumin 3.4 g/dL Globulin 2.5 g/dL Bilirubin, Total 0.3 mg/dL ALT (SGPT) 11 U/L AST (SGOT) 31 U/L Alkaline Phosphatase 207 IU/L Test performed on Nov 19, 2019 13:57 CBC Slide Review Slide Review Perform Test performed on Oct 29, 2019 12:25 Manual Lymphocytes 16.1 % Manual Monocytes 21.4 % Manual Eosinophils 3.6 % Manual Basophils 1.2 % Test performed on Oct 06, 2019 14:00 BUN/Creatinine Ratio 29 Absolute Value A/G Ratio 1.5 Absolute Value Impression: 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 3 separate hepatic lesions are identified, indicating multifocal hepatic metastatic disease. The index lesion in the left hepatic lobe measures 2.5 cm with SUV of 31.1. Smaller right hepatic lobe lesions have SUV of 10.5 Approximately 30 pounds Weight loss due to Dysphagia due to above Hypertension Dr Fischer discussed with Mrs Pro her disease status clinically and radiologically. She has stage IV disease with liver metastases. She was symptomatic due to distal esophageal primary. Case was discussed with Dr. Hector , as per his evaluation patient has partial obstruction and liquid diet maybe tolerable. Considering her age and stage of disease, recommended systemic chemotherapy with modified dose FOLFOX and hercetin ,as she is [id number] positive and repeat EGD after 3 cycles to assess the response. Plan for CT PET scan after 6 doses. Ms. Pro began her first cycle of modified FOLFOX along with Herceptin (she was HER-2/jordan positive) 0n 11/04/2018. She has tolerated treatment well and has had obvious clinical response. Follow-up CT PET scan done on 12/21/2018 showed excellent response with minimal activity of the distal esophagus consistent with a positive response to therapy. The area had a reported SUV of 3.4 compared to 19.7 on prior study. Multifocal hepatic metastases are now isometabolic to surrounding baseline liver activity, representing a positive response to therapy. No new lesion seen except few reactive lymph nodes in the right hilar, paratracheal and subcarinal area. Follow-up EGD done on 01/29/2019 showed abnormal looking mucosa at the distal third of esophagus, multiple biopsies were obtained. The final pathology report showed Goldstein's esophagitis, no evidence of malignancy. Follow-up PET/CT from March 01, 2019 reported distal esophagus with an SUV of 4.8 up from 3.4 and a significant change. Given the benign biopsy results from January 2019 EGD this is likely inflammatory. Hepatic activity is unremarkable with no evidence of active metastatic disease. The reactive mediastinal nodes previously described are now FDG negative . Follow-up CT PET scan done on 06/07/2019 after 12 dose of FOLFOX/Herceptin showed disease progression at distal esophagus with increased activity-SUV 10.5. At that time chemotherapy was discontinued on 06/03/2019 and due to progressive dysphagia. She was referred to radiation oncology for palliative radiation therapy to distal esophagus which she completed on 08/06/2019. Mrs Pro tolerated palliative radiation to distal esophagus well with significant improvement in her dysphagia. was recommended changing her treatment to maintenance therapy with weekly Herceptin and Taxol 3 weeks on 1 week off. The plan is to do follow-up CT PET scan after 3 cycles. Echocardiogram done on 09/29/2019 showed ejection fraction 65% and bone scan showed abnormal activity in the calvarium but plain x-ray showed no abnormality. MRI scan of the head which showed calvarium bone lesion confirmed with bone scan but plain x-ray did not show any abnormality in the skull bones, these changes could be due to chemotherapy-induced bone marrow changes. Per DR Fischer, we'll monitor. Ms. Pro resumed paclitaxel Herceptin on 10/13/2019. She began again having chemo induced neutropenia with an ANC of 1200 on day 8 cycle 2. She was having some performance status issues and she was sent for followup imaging. Mrs. Pro had follow-up PET CT imaging on October 25, 2019. The result indicated progression of distal esophageal malignant mass (the distal esophageal mass now measures 2.7 cm in diameter with an SUV of 15.2 which is up from her last PET CT of 10.7).; new multifocal hepatic metastatic disease (there is a index lesion in the central left hepatic lobe measuring 1.6 x 2.4 cm with an SUV of 27.8. A segment IVb index lesion measuring 2.6 x 1.9 cm with an SUV of 17.7 and other multiple lesions throughout the liver demonstrating similar uptake).; and a new uptake at the anterior left second rib from a small fracture. Ms. Pro also underwent endoscopy with Dr. Mahoney on 2019. There was presence of scarring but without obvious stenosis or stricture with history of esophageal cancer likely status post radiation. The duodenum and stomach were examined with no abnormalities seen. Given that Ms. Pro had so much difficulty tolerating 2 cycles of the paclitaxel and Herceptin due to neutropenia, has now recommended that she continuue to pursue chemotherapy with Neupogen support. She resumed her chemotherapy on November 14, 2019. and completed on 12/16/2019 and switched to maintenance Herceptin on 01/01/2020 Plan: Discussed with patient regarding her labs white blood count 67.7 hemoglobin 11.6 hematocrit 37.8 platelets 124,000 CMP within normal limits Clinically, patient is doing well tolerating maintenance Herceptin well. As far as mid back pain is concerned probably due to bone marrow expansion due to Neupogen which we will discontinue and monitor her CBC and she will return to clinic in 2 weeks with CBC and CMP and if reasonable, will proceed with next 3 weekly dose of maintenance Herceptin Signed By: Tamar Fischer M.D. <<Signature on File>>
== END 2020-01-13 23:59 | disposition home or self-care (01) ==
LOC: ONCMED 05:50
PROVIDERS: Nurse Practitioner; Family Provider Internal Medicine; PCP Internal Medicine; Visit Provider Internal Medicine Hematology & Oncology
DX: Z51.12 Encounter for antineoplastic immunotherapy (principal); Z51.11 Encounter for antineoplastic chemotherapy; C15.5 Malignant neoplasm of lower third of esophagus; C78.7 Secondary malignant neoplasm of liver and intrahepatic bile duct; C79.51 Secondary malignant neoplasm of bone; D70.1 Agranulocytosis secondary to cancer chemotherapy; T45.1X5A Adverse effect of antineoplastic and immunosuppressive drugs, initial encounter; I10 Essential (primary) hypertension; I34.0 Nonrheumatic mitral (valve) insufficiency; Z79.899 Other long term (current) drug therapy; Z90.49 Acquired absence of other specified parts of digestive tract; Z92.3 Personal history of irradiation
CPT/HCPCS: 36415; 80053; 85025; 96367; 96372; 96401; 96413; 96417; 99211; 99214; J1100; J1200; J1442; J2469; J3490; J7050; J9267; J9355